=== PATIENT | female | born 1970 | race Caucasian/White ===

== ENCOUNTER → 2017-09-17 | Outpatient (CLI) | payer MEDICARE, OTHER ==
--- NOTE | 2017-09-18 13:44 | MM ---
Reason for exam: screening (asymptomatic). Last mammogram was performed 5 years and 1 month ago. Physical Findings: A clinical breast exam by your physician is recommended on an annual basis and results should be correlated with mammographic findings. MG 3D Screening Mammo W/Cad Bilateral CC, MLO, and XCCL view(s) were taken. Prior study comparison: August 13, 2012, bilateral digital screening mammo w/CAD. July 28, 2010, bilateral diagnostic digital mammog. The breast tissue is heterogeneously dense. This may lower the sensitivity of mammography. No suspicious abnormality. No significant changes when compared with prior studies. ASSESSMENT: Negative, BI-RAD 1 RECOMMENDATION: Routine screening mammogram of both breasts in 1 year.
== END | disposition home or self-care (01) ==
LOC: RADMAMWWP 08:27
PROVIDERS: ATTEND Internal Medicine
DX: Z12.31 Encounter for screening mammogram for malignant neoplasm of breast (principal)
CPT/HCPCS: 77063; G0202

== ENCOUNTER 2018-04-10 19:45 | Emergency (ER) | payer MEDICARE, OTHER ==
[2018-04-10] MEDS ORDERED: SODIUM CHLORIDE 0.9% 1,000 ML IV STA (20:53)
[2018-04-10] MEDS ORDERED: KETOROLAC 30 MG/ML 1 ML VIAL IVP STA (21:13)
[2018-04-10] MEDS ORDERED: ONDANSETRON 4 MG/2 ML VIAL IVP STA (21:13)
[2018-04-10 21:21] LABS: Basophils % (A) 0 %; Eosinophils # (A) 0.2 k/uL (0-0.7); Eosinophils % (A) 2 %; HCT 41.2 % (34.0-46.0); HGB 13.8 gm/dL (11.4-16.0); Lymphocytes # (A) 2.2 k/uL (1.0-4.8); Lymphocytes % (A) 14 %; MCH 27.7 pg (25.0-35.0); MCHC 33.5 g/dL (31.0-37.0); MCV 82.5 fL (80.0-100.0); Mean Platelet Volume 7.3; Monocytes % (A) 6 %; Neutrophils # (A) 12.5 k/uL (1.3-7.7); Neutrophils % (A) 78 %; Platelet Count 345 k/uL (150-450); RDW 13.8 % (11.5-15.5); WBC 16.1 k/uL (3.8-10.6)
[2018-04-10 21:25] LABS: Albumin 4.4 g/dL (3.5-5.0); Potassium 3.4 mmol/L (3.5-5.1); Total Bilirubin 0.4 mg/dL (0.2-1.3); Total Protein 7.2 g/dL (6.3-8.2)
[2018-04-10 21:28] LABS: Amorphous Sediment,Urine Rare /hpf; Appearance,Urine Cloudy (Clear); Bacteria,Urine Many /hpf; Bilirubin,Urine Negative (Negative); Blood,Urine Negative (Negative); Color,Urine Yellow; Glucose,Urine (UA) Negative (Negative); Ketones,Urine Trace (Negative); Leukocyte Esterase,Urine Negative (Negative); Mucus,Urine Rare /hpf; Nitrite,Urine Negative (Negative); Protein,Urine Trace (Negative); RBC,Urine 9 /hpf (0-5); Specific Gravity,Urine 1.012 (1.001-1.035); Squamous Epithelial Cell,Urine 7 /hpf (0-4); Urobilinogen,Urine <2.0 mg/dL (<2.0); WBC,Urine 9 /hpf (0-5)
--- NOTE | 2018-04-10 22:16 | CT ---
EXAMINATION TYPE: CT abdomen pelvis w con DATE OF EXAM: 04/10/2018 COMPARISON: 06/03/2014 HISTORY: Left side abdominal and back pain, nausea, vomiting and diarrhea. CT DLP: 1890 mGycm Automated exposure control for dose reduction was used. TECHNIQUE: Helical acquisition of images was performed from the lung bases through the pelvis. CONTRAST: Performed without Oral Contrast and with IV Contrast, patient injected with 100ml mL of Isovue 300. FINDINGS: Lung bases are clear. There is no pleural effusion. There is no pericardial effusion. Liver spleen gallbladder appear normal. Bile ducts are not dilated. Pancreas appears normal. There is no adrenal mass. There is left-sided hydronephrosis and hydroureter proximally. There is a 6 mm calculus at the left ureteropelvic junction. There is mild left-sided perinephric edema. There ar e several small calculi in the left kidney that measure up to 4 mm. The right kidney shows no evidenc e of a calculus. There is no hydronephrosis on the right side. Appendix appears normal. There is no i ntestinal wall thickening. There are no dilated loops. There is no ascites. Bladder distends smoothly . I see no bony destructive process. IMPRESSION: MULTIPLE LEFT RENAL CALCULI. OBSTRUCTING CALCULUS AT THE LEFT URETEROPELVIC JUNCTION.
--- NOTE | 2018-04-10 22:29 | ED ---
Abdominal Pain HPI - General Chief Complaint: Abdominal Pain Stated Complaint: left side pain/vomiting/diarrhea Time Seen by Provider: 04/10/18 20:52 Source: patient, RN notes reviewed, old records reviewed Mode of arrival: ambulatory Limitations: no limitations - History of Present Illness Initial Comments: Patient is a 48 year old female with CC of left sided abdominal and back pain for 2 days. Patient states she had pain of the right upper abdominal quadrant, but the pain has moved to the left upper and lower quadrants. Patient initially thought pain was due to constipation. She took a stool softner ad then developed diarrhea. She also reports vomiting yellow bile. She does have a history of kidney stones. - Related Data Home Medications Medication Instructions Recorded Confirmed Naloxegol Oxalate [Movantik] 25 mg PO DAILY 04/10/18 04/10/18 Naproxen Sodium [Aleve] 440 mg PO BID PRN 04/10/18 04/10/18 Pregabalin [Lyrica] 150 mg PO BID 04/10/18 04/10/18 SUMAtriptan SUCCINATE [Imitrex] 100 mg PO DAILY PRN 04/10/18 04/10/18 amLODIPine [Norvasc] 10 mg PO DAILY 04/10/18 04/10/18 Previous Rx's Medication Instructions Recorded Ciprofloxacin HCl 500 mg PO BID #14 tab 04/10/18 HYDROcodone/APAP 5-325MG [[place] 1 tab PO Q6HR PRN #10 tab 04/10/18 5-325] Ketorolac [Toradol] 10 mg PO TID #15 tab 04/10/18 Ondansetron HCl [Zofran] 4 mg PO TID #20 tablet 04/10/18 Tamsulosin HCl [Flomax] 0.4 mg PO DAILY #10 cap 04/10/18 Allergies Allergy/AdvReac Type Severity Reaction Status Date / Time No Known Allergies Allergy Verified 04/10/18 19:56 Review of Systems ROS Statement: Those systems with pertinent positive or pertinent negative responses have been documented in the HPI. ROS Other: All systems not noted in ROS Statement are negative. Past Medical History Past Medical History: Hypertension Additional Past Medical History / Comment(s): migraine, kidney stone. IBS. back pain. History of Any Multi-Drug Resistant Organisms: None Reported Past Surgical History: Section, Orthopedic Surgery Additional Past Surgical History / Comment(s): carpal tunnel. left total knee replacement. back surgery. Past Psychological History: No Psychological Hx Reported Smoking Status: Current every day smoker Past Alcohol Use History: None Reported Past Drug Use History: None Reported General Exam - General Exam Comments Initial Comments: 48 year old male, no distress. Limitations: no limitations General appearance: alert, in no apparent distress Head exam: Present: atraumatic, normocephalic, normal inspection Eye exam: Present: normal appearance, PERRL, EOMI. Absent: scleral icterus, conjunctival injection, periorbital swelling ENT exam: Present: normal exam, mucous membranes moist Neck exam: Present: normal inspection. Absent: tenderness, meningismus, lymphadenopathy Respiratory exam: Present: normal lung sounds bilaterally. Absent: respiratory distress, wheezes, rales, rhonchi, stridor Cardiovascular Exam: Present: regular rate, normal rhythm, normal heart sounds. Absent: systolic murmur, diastolic murmur, rubs, gallop, clicks GI/Abdominal exam: Present: soft, tenderness (Left upper quadrant and Left CVA tenderness), normal bowel sounds. Absent: distended, guarding, rebound, rigid Extremities exam: Present: normal inspection, full ROM, normal capillary refill. Absent: tenderness, pedal edema, joint swelling, calf tenderness Back exam: Present: normal inspection Neurological exam: Present: alert, oriented X3, CN II-XII intact Course Vital Signs 04/10/18 04/10/18 04/10/18 19:52 22:11 23:03 Temperature 97.9 F 98.3 F Pulse Rate 109 H 87 81 Respiratory 20 18 19 Rate Blood Pressure 155/100 145/85 161/103 O2 Sat by Pulse 98 98 97 Oximetry Medical Decision Making - Medical Decision Making Patient is a 48 year old female with CC of left sided abdominal and back pain for 2 days. Patient is afebrile. Patient has evidence of leukocytosis, which is likely in response to vomitng. UA shows some RBC and WBC. CT abdomen and pelvis completed and shows obstructing UPJ stone measuring 6mm on left kidney. Patient case discussed with Dr. Sexton .Patient has normal kidney function, patient informed of these results. Will start patient on cipro fore the few WBC in UA. Patient given referral for urology, and dc with flomax, toradol, and zofran. She does not want [place]. Patient informed of return parameters. - Lab Data Result diagrams: 04/10/18 20:55 04/10/18 20:55 Lab Results 04/10/18 04/10/18 04/10/18 Range/Units 20:55 20:55 20:55 WBC 16.1 H (3.8-10.6) k/uL RBC 5.00 (3.80-5.40) m/uL Hgb 13.8 (11.4-16.0) gm/dL Hct 41.2 (34.0-46.0) % MCV 82.5 (80.0-100.0) fL MCH 27.7 (25.0-35.0) pg MCHC 33.5 (31.0-37.0) g/dL RDW 13.8 (11.5-15.5) % Plt Count 345 (150-450) k/uL Neutrophils % 78 % Lymphocytes % 14 % Monocytes % 6 % Eosinophils % 2 % Basophils % 0 % Neutrophils # 12.5 H (1.3-7.7) k/uL Lymphocytes # 2.2 (1.0-4.8) k/uL Monocytes # 1.0 (0-1.0) k/uL Eosinophils # 0.2 (0-0.7) k/uL Basophils # 0.0 (0-0.2) k/uL Sodium 141 (137-145) mmol/L Potassium 3.4 L (3.5-5.1) mmol/L Chloride 101 (98-107) mmol/L Carbon Dioxide 25 (22-30) mmol/L Anion Gap 15 mmol/L BUN 13 (7-17) mg/dL Creatinine 1.00 (0.52-1.04) mg/dL Est GFR (CKD-EPI)AfAm 76 (>60 ml/min/1.73 sqM) Est GFR (CKD-EPI)NonAf 66 (>60 ml/min/1.73 sqM) Glucose 119 H (74-99) mg/dL Calcium 10.0 (8.4-10.2) mg/dL Total Bilirubin 0.4 (0.2-1.3) mg/dL AST 23 (14-36) U/L ALT 34 (9-52) U/L Alkaline Phosphatase 107 (38-126) U/L Total Protein 7.2 (6.3-8.2) g/dL Albumin 4.4 (3.5-5.0) g/dL Amylase 44 (30-110) U/L Lipase 48 (23-300) U/L Urine Color Yellow Urine Appearance Cloudy H (Clear) Urine pH 6.0 (5.0-8.0) Ur Specific [place] 1.012 (1.001-1.035) Urine Protein Trace H (Negative) Urine Glucose (UA) Negative (Negative) Urine Ketones Trace H (Negative) Urine Blood Negative (Negative) Urine Nitrite Negative (Negative) Urine Bilirubin Negative (Negative) Urine Urobilinogen <2.0 (<2.0) mg/dL Ur Leukocyte Esterase Negative (Negative) Urine RBC 9 H (0-5) /hpf Urine WBC 9 H (0-5) /hpf Ur Squamous Epith Cells 7 H (0-4) /hpf Amorphous Sediment Rare H (None) /hpf Urine Bacteria Many H (None) /hpf Urine Mucus Rare H (None) /hpf - Radiology Data Radiology results: report reviewed Left renal calculi. Obstructing Caliculus measuring 6mm of the left uteropelvic junction. It measures 6 mm. Disposition Clinical Impression: Left ureteral calculus Disposition: HOME SELF-CARE Condition: Good Instructions: Ureteral Stones (ED) Additional Instructions: Patient should follow-up with urology within the next 1-2 days. Take all the medications as prescribed. Return to the emergency department if any alarming signs or symptoms occur. Prescriptions: Ciprofloxacin HCl 500 mg PO BID #14 tab HYDROcodone/APAP 5-325MG [[place] 5-325] 1 tab PO Q6HR PRN #10 tab PRN Reason: Pain Ketorolac [Toradol] 10 mg PO TID #15 tab Ondansetron HCl [Zofran] 4 mg PO TID #20 tablet Tamsulosin HCl [Flomax] 0.4 mg PO DAILY #10 cap Is patient prescribed a controlled substance at d/c from ED?: Yes When asked, does pt state using other controlled substances?: No If prescribed controlled substance>3 days was MAPS reviewed?: Prescribed <3 Days If opioid is for acute pain is fill amount 7 days or less?: Yes If Rx opioid, was Start Talking consent form obtained?: Yes Referrals: Sean Cunha MD [Primary Care Provider] - 1-2 days Eric Queen MD [STAFF PHYSICIAN] - 1-2 days Time of Disposition: 22:28
[2018-04-10 23:07] VITALS: BP 161/103; PULSE 81; RESP 19; TEMP 98.3
== END 2018-04-10 23:02 | disposition home or self-care (01) ==
LOC: EC 19:45
DX: N20.2 Calculus of kidney with calculus of ureter (principal); I10 Essential (primary) hypertension; F17.200 Nicotine dependence, unspecified, uncomplicated; Z98.890 Other specified postprocedural states; Z96.652 Presence of left artificial knee joint; Z87.442 Personal history of urinary calculi; Z79.899 Other long term (current) drug therapy
CPT/HCPCS: 99285; 96374; 96375; 96361; 36415; 80053; 82150; 83690; 85025; 81001; 74177; J2405; J1885; Q9967

== ENCOUNTER → 2018-04-14 | Outpatient (CLI) | payer MEDICARE, OTHER ==
--- NOTE | 2018-04-14 12:05 | XR ---
EXAMINATION TYPE: XR KUB DATE OF EXAM: 04/14/2018 CLINICAL DATA: 48 year-old female left-sided flank pain for a few days, stones, [facility] COMPARISON: CT 04/10/2018 FINDINGS: Lung bases are clear. No evidence for free intraperitoneal air. Sided renal calculi are present, approximately 3 measuring up to 4 mm. There is a 9 mm irregular calcification at the left paramedian mid abdomen. Phleboliths in the left hemipelvis. Moderate stool burden. Nonobstructive bowel gas pattern. IMPRESSION: 1. Left-sided nephrolithiasis measuring up to 4 mm. 2. 9 mm irregular calcification left mid abdomen suspected to represent a proximal ureteral calculus. 3. Moderate stool burden.
== END | disposition home or self-care (01) ==
LOC: RADXRMAIN 11:40
PROVIDERS: ATTEND Urology
DX: N20.0 Calculus of kidney (principal)
CPT/HCPCS: 74018

== ENCOUNTER → 2018-05-01 | Outpatient (CLI) | payer MEDICARE, OTHER ==
--- NOTE | 2018-05-01 11:03 | XR ---
EXAMINATION TYPE: XR abdomen 1V DATE OF EXAM: 05/01/2018 CLINICAL DATA: 48 year-old female left ureteral stone, pain, [facility] COMPARISON: 04/14/2018 FINDINGS: Nonobstructive bowel gas pattern with very mild scattered stool. Air extends distally into the rectum . No dilated small bowel loops. A couple nonobstructive calculi redemonstrated on the left measuring 5 mm 3 mm. Stable 8 mm calcifica tion left paramedian mid abdomen corresponding to a mid left ureteral calculus. IMPRESSION: 1. Stable 8 mm calcification left paramedian mid abdomen, likely a mid left ureteral calculus. 2. Additional nonobstructive left-sided nephrolithiasis measuring up to 5 mm.
== END | disposition home or self-care (01) ==
LOC: RADXRMAIN 10:22
PROVIDERS: ATTEND Urology
DX: N20.0 Calculus of kidney (principal)
CPT/HCPCS: 74018

== ENCOUNTER 2018-05-07 09:51 | Day surgery (SDC) | payer MEDICARE, OTHER ==
[2018-05-05 11:52] VITALS: BMI 39.9
--- NOTE | 2018-05-05 21:33 | P.GSHP ---
History of Present Illness H&P Date: 05/05/18 48 yo female comes for a a left ureteroscopy and laser lithotripsy She has had a painful 6 m left ureteral stone for several weeks She is still having pain and wants it out She comes for this procedure - Constitutional Constitutional: Reports lethargy - Genitourinary (Female) Genitourinary: Reports as per HPI - Neurological Neurological: Reports headaches Past Medical History Past Medical History: Hypertension, Myocardial Infarction ([place]) Additional Past Medical History / Comment(s): migraine, kidney stone. IBS. back pain with DDD, Last Myocardial Infarction Date:: unknown History of Any Multi-Drug Resistant Organisms: None Reported Past Surgical History: Back Surgery, Section, Hysterectomy, Orthopedic Surgery Additional Past Surgical History / Comment(s): carpal tunnel. left total knee replacement. back surgery. Past Anesthesia/Blood Transfusion Reactions: Motion Sickness, Postoperative Nausea & Vomiting (PONV) Smoking Status: Current every day smoker - Past Family History Mother Family Medical History: No Reported History Medications and Allergies Home Medications Medication Instructions Recorded Confirmed Type Pregabalin [Lyrica] 150 mg PO HS 04/10/18 05/05/18 History SUMAtriptan SUCCINATE [Imitrex] 100 mg PO DAILY PRN 04/10/18 05/05/18 History amLODIPine [Norvasc] 10 mg PO HS 04/10/18 05/05/18 History Acetaminophen Tab [Tylenol Tab] 500 mg PO Q6H PRN 05/05/18 05/05/18 History Tamsulosin HCl [Flomax] 0.4 mg PO HS 05/05/18 05/05/18 History Allergies Allergy/AdvReac Type Severity Reaction Status Date / Time No Known Allergies Allergy Verified 05/05/18 11:40 Surgical - Exam - General well developed, well nourished, no distress - Eyes PERRL - ENT no hearing loss - Neck no masses - Respiratory normal expansion, normal respiratory effort - Abdomen Abdomen: soft, non tender - Integumentary no rash - Neurologic normal coordination, normal sensation - Musculoskeletal normal gait, normal posture - Psychiatric oriented to time, oriented to person, oriented to place, speech is normal, memory intact Assessment and Plan Assessment: imression: left ureteral stone Plan: Left ureteroscopy with laserlithotripsy wit possible stent
[~2018-05-07 09:51] MED LIST: DEXAMETHASONE SOD PHOSPHATE 10 MG/ML 1 ML VIAL IV ONE; LACTATED RINGERS 1,000 ML IV SCH; MIDAZOLAM 2 MG/2 ML VIAL IV PRN; ONDANSETRON 4 MG/2 ML VIAL IVP ONE; SCOPOLAMINE 1.5MG/72HR PATCH TRANSDERM ONE; ceFAZolin 1,000 MG in DEXTROSE/WATER 1 50ML.BAG IV ONE; fentaNYL (PF) 50 MCG/ML 2 ML AMP IV PRN
--- NOTE | 2018-05-07 11:35 | XR ---
EXAMINATION TYPE: XR KUB DATE OF EXAM: 05/07/2018 CLINICAL DATA: 48 year-old female prelithotripsy left-sided kidney stones, [facility] COMPARISON: 04/14/2018 FINDINGS: Nonobstructive bowel gas pattern. Lung bases clear. Supine imaging limited for assessment o f free air. On the lower radiograph, subtle 4 mm calcification at the left mid abdomen. Additional calculi seen p reviously are not as clearly seen. 8 mm calcification left paramedian mid abdomen is redemonstrated. Fluid within the left side of the pelvis. IMPRESSION: 1. Probable 8 mm left midureteral calculus again demonstrated 2. Additional left-sided nephrolithiasis not as well seen, one calculus measuring 4 mm is seen today.
[2018-05-07] MEDS ORDERED: LIDOCAINE 1% 20 ML VIAL (10MG/ML) FOR IV START INTRADERMA ONE (11:40)
[2018-05-07] MEDS ORDERED: SUCCINYLCHOLINE CHLORIDE 100 MG/5 ML SYR IV ONE (12:31)
[2018-05-07] MEDS ORDERED: LIDOCAINE 1% INJ 10MG/ML (20 ML MDV) ONE (12:31)
[2018-05-07] MEDS ORDERED: MIDAZOLAM 2 MG/2 ML VIAL ONE (12:31)
[2018-05-07] MEDS ORDERED: PROPOFOL 10 MG/ML 20 ML VIAL IV ONE (12:31)
[2018-05-07] MEDS ORDERED: fentaNYL (PF) 50 MCG/ML 2 ML AMP ONE (12:31)
--- NOTE | 2018-05-07 13:19 | P.OP ---
Date of Procedure: 05/07/18 Preoperative Diagnosis: Left ureteral calculus Postoperative Diagnosis: Same Procedure(s) Performed: Cystoscopy, left ureteroscopy, left laser lithotripsy, placement of 624 stent Anesthesia: CATRACHITAA Surgeon: Lorenzo Lozoya Estimated Blood Loss (ml): 0 Pathology: other (Stone) Condition: stable Disposition: PACU Indications for Procedure: The patient is 48 for the last several weeks she is tried to pass a 7 mm mid to proximal ureteral stone she has not been able to she comes for ureteroscopy Description of Procedure: Patient is brought to the operating suite. She is given a successful general endotracheal anesthesia. The stone is seen under fluoroscopy. A sterile prep and drape was administered. Cystoscopy Foroblique lens and 22-Russian sheath identifies normal urethra. The ureters normal bladder mucosa is unremarkable. I immediately pass a 7-Russian mini ureteroscope up into the ureter and I'm able to traverse although up to the stone. There is a fair amount amount of edema around the stone. With the 270 laser probe and 4 W of energy the stone was broken into tiny fragments and flushed out of the ureter. Due to the edema I will leave the stent. An 035 wires and passed through the ureteroscope into the renal pelvis. Over the wires and passed a 6 x 24 double-J stent that coils in the kidney and in the bladder The patient's awake and returned recovery room good condition. She'll be discharged home and found the office in 10 days for cystoscopy stent removal
[2018-05-07 13:41] VITALS: TEMP 97.4
[2018-05-07 13:45] VITALS: RESP 16
--- NOTE | 2018-05-07 13:51 | FL ---
EXAMINATION TYPE: FL guidance operating room DATE OF EXAM: 05/07/2018 FLUOROSCOPY Fluoroscopy time of 19 seconds was used during cystoscopy, left calculus intervention with stent inse rtion. 1 image/s document/s the procedure.
[2018-05-07] MEDS ORDERED: HYDROmorphone 0.5 MG/0.5 ML SYRINGE IVP ONE (14:13)
[2018-05-07 14:55] VITALS: BP 132/83; PULSE 86
== END 2018-05-07 15:09 | disposition home or self-care (01) ==
LOC: OR 09:51
PROVIDERS: ATTEND Urology
DX: N20.2 Calculus of kidney with calculus of ureter (principal); K21.9 Gastro-esophageal reflux disease without esophagitis; I10 Essential (primary) hypertension; I25.2 Old myocardial infarction; F17.210 Nicotine dependence, cigarettes, uncomplicated; Z79.899 Other long term (current) drug therapy
CPT/HCPCS: 84132; 82365; 74018; 52356; C2625; C1769; J2250; J1100; J2405; J2001; J3010; J0690; J0330; J2704; J1170

== ENCOUNTER → 2018-08-12 | Outpatient (CLI) | payer MEDICARE, OTHER ==
[2018-07-23 15:00] VITALS: BMI 38.7
[2018-08-12 12:18] VITALS: BP 123/76; PULSE 80; RESP 18; TEMP 98.3
--- NOTE | 2018-08-12 12:39 | P.PAINCN ---
History of Present Illness - Reason for Consult Consult date: 08/12/18 - History of Present Illness This is the initial visit for this 48 years old female with a chronic history of severe neck pain and headache and low back pain, symptoms started 15 years ago, increased with intensity over time, she had multiple pain intervention procedures procedures, including Botox injection, and that helped her headache, and almost a year ago she had radiofrequency ablation of the medial branch lumbar area, which helped her low back pain significantly, the patient moved to our area recently, and it will be hard for her to go to [facility] to have her injections done at [facility], currently she is having the severe pain in the low back area, with radiation to the posterior aspect of her buttock, she denies any fever or night sweats. She denies any motor or sensory deficit, and there is no change in the bowel movement or urination. Past Medical History Past Medical History: Hypertension, Myocardial Infarction ([place]) Additional Past Medical History / Comment(s): migraine, kidney stone. IBS. back pain with DDD, Last Myocardial Infarction Date:: unknown History of Any Multi-Drug Resistant Organisms: None Reported Past Surgical History: Back Surgery, Section, Hysterectomy, Joint Replacement, Orthopedic Surgery Additional Past Surgical History / Comment(s): carpal tunnel. left total knee replacement. back surgery. Past Anesthesia/Blood Transfusion Reactions: Motion Sickness, Postoperative Nausea & Vomiting (PONV) Smoking Status: Current every day smoker - Past Family History Mother Family Medical History: No Reported History Medications and Allergies Home Medications Medication Instructions Recorded Confirmed Type Pregabalin [Lyrica] 150 mg PO HS 04/10/18 08/12/18 History SUMAtriptan SUCCINATE [Imitrex] 100 mg PO DAILY PRN 04/10/18 08/12/18 History amLODIPine [Norvasc] 10 mg PO HS 04/10/18 08/12/18 History Acetaminophen Tab [Tylenol Tab] 500 mg PO Q6H PRN 05/05/18 08/12/18 History Levofloxacin [Levaquin] 500 mg pe PO DAILY 08/12/18 08/12/18 History Phentermine HCl [Adipex P] 15 mg PO DAILY 08/12/18 08/12/18 History Umeclidinium Brm/Vilanterol Tr 1 puff INHALATION DAILY 08/12/18 08/12/18 History [Anoro Ellipta 62.5-25 Mcg INH] predniSONE 20 mg PO DAILY 08/12/18 08/12/18 History Allergies Allergy/AdvReac Type Severity Reaction Status Date / Time No Known Allergies Allergy Verified 08/12/18 11:54 Physical Exam Vitals: Vital Signs Temp Pulse Resp BP Pulse Ox 08/12/18 12:17 98.3 F 80 18 123/76 96 Intake and Output 08/11/18 08/12/18 08/12/18 22:59 06:59 14:59 Other: Weight 102.058 kg Social history : smoker , NO ETOH , NO Illegal drugs use . Review of Systems : 1- Constitutional : no chills , no fever , no night sweats , 2- Ears : no ear discharge , no change in hearing 3-Nose, Mouth ,Throat ; no bleeding gums, no sore throat , no epistaxis , 4-Cardiovascular : Denies chest pain, , no orthopnea , no palpitation 5-Respiratory : Denies cough , no dyspnea , no hemoptysis 6-Gastrointestinal :, no change in bowel habits , no coffee- ground emesis . 7-Genitourinary : No hematuria , no discharge , no incontinence, 8-Musculoskeletal : No gait dysfunction , report low back pain , reports headache , 9- Neurological : no ataxia , no tremor , no sezure , 10-Psychatric , no suicidal ideation no hallucination 11- Endocrine : no cold intolerence , no polyuria , no polydypsia , 12-Hematologic : no easy bleeding , no easy brusing , 13-Allergic / immunology : no angioedema , no wheezing ,no allergic rhinitis 14-Integumentary : no brttle nails , no change hair / nails , no foot/leg ulcers . Physical Examinations : 1-Constitutional : Cooperative , not in acute distress . 2-HEENT : nech ; supple , no Lymphadenopathy , no Thyromegaly , :eyes , no icterus, no photophobia . ENT : , normal oropharynx , no Thrush 3- Respiratory : Chest clear to auscultations Bilaterally , no wheezing . 4- Cardiovascular : regular rate and rhythem , S1 , S2 , no S3 , no S4. 5- Gastrointestinal: abdomen soft no tenderness , no organomegally . 6- Genitourinary : Defferred . 7-Integumentary : No cellulitis , no ulcers , normal skin turgor , no cyanotic . 8- neurologic : Cranial nerve II to XII intact , no focal neurological deffecit 9-psychatric : alert , oriented X 3 , appropriate affect , intact judgment and insight . 10-Lymphatic : no Lymphadenopathy. 11- musculoskeltal: normal gait Cervical Spine motor stregnth in the deltoid and biceps, normal right side , normal Left side motor stregnth biceps and the wrist extensors normal right side ,normal left side . motor stregnth in the triceps muscle . normal Right side , normal Left side deep tendon reflexes normal at the biceps , normal at Brachioradialis , normal at triceps. positive cervical facet loading test . Lumber spine moter stegnth lower extremities ,thigh and legs 5/5 Right side , 5/5 Left side deep tendon reflexes : normal Knee Jerk , normal ankle Jerk positive lumber facet Loading Test Range of motion of the lumbar spine Flexion 60 degrees, extension 10 degrees strait leg raising test , positive at 60 degree left; negative on the right side Fabere test negative bilaterally tenderness over the Sacroiliac joint on the R and L sides Results Comments: Patient had MRI done at different institutions she will bring this report Assessment and Plan Plan: Assessment and plan=1-lumbar spondylosis with lumbar facet arthropathy without myelopathy. Patient will be good candidate to have diagnostic medial branch block lumbar area at L3 to S1 Lifts positive we will proceed with radiofrequency ablation of the medial branch lumbar area. 2-cervical spondylosis, cervicogenic headache in the future we could order MRI of the cervical spine,TO identify etiology Time with Patient: Greater than 30 PQRS Measure Charge Sheet Measure #130: Documentation of Current Meds in Medical Chart: Patient's medications documented in chart Measure #226: Tobacco Use: Screen & Cessation Intervention: Pt screened for tobacco use AND intervention given Measure #111: Pneumonia Vaccination: Pneumococcal vaccine NOT administered or previously given Measure #47: Advance Care Plan: Advance care planning discussed & documented, pt chose/unable to give Measure #412: Opioid Treatment Agreement: No documentation of signed opioid treatment agreement Measure #408: Opioid Therapy Follow-up Evaluation: Patient had NO f/u eval minimum every 3 months during opioid therapy Measure #317: Preventitive Care & Scrn High Bld Press & F/U: Normal blood pressure, f/u not required Measure #128: Body Mass Index (BMI) Screening & Follow-up: BMI documented ABOVE normal parameters - f/u documented Measure #131: Pain Assessment & Follow-up: Pain positive & plan documented, Follow-up scheduled Measure #431: Unhealthy Alcohol Use Preventative Care & Scrn: Patient not identified as an unhealthy alcohol user PQRS Narrative: Smoking Status Current every day smoker Do You Want the Pneumonia No Vaccine AT THIS TIME? Blood Pressure 123/76 Pain Intensity [Lower Back] 5 Pain Intensity [Neck] 3 Hx Alcohol Use (MH) No Home Medications: Ambulatory Orders Pregabalin [Lyrica] 150 mg PO HS 04/10/18 SUMAtriptan SUCCINATE [Imitrex] 100 mg PO DAILY PRN 04/10/18 amLODIPine [Norvasc] 10 mg PO HS 04/10/18 Acetaminophen Tab [Tylenol Tab] 500 mg PO Q6H PRN 05/05/18 Levofloxacin [Levaquin] 500 mg pe PO DAILY 08/12/18 Phentermine HCl [Adipex P] 15 mg PO DAILY 08/12/18 Umeclidinium Brm/Vilanterol Tr [Anoro Ellipta 62.5-25 Mcg INH] 1 puff INHALATION DAILY 08/12/18 predniSONE 20 mg PO DAILY 08/12/18
== END | disposition home or self-care (01) ==
LOC: PNWHC3 11:49
PROVIDERS: ATTEND Specialist
DX: G89.29 Other chronic pain (principal); M54.2 Cervicalgia; R51 Headache; M54.5 Low back pain; M47.812 Spondylosis without myelopathy or radiculopathy, cervical region; M47.816 Spondylosis without myelopathy or radiculopathy, lumbar region; M46.86 Other specified inflammatory spondylopathies, lumbar region; F17.200 Nicotine dependence, unspecified, uncomplicated; I10 Essential (primary) hypertension; I25.2 Old myocardial infarction; Z79.52 Long term (current) use of systemic steroids; Z79.2 Long term (current) use of antibiotics; Z90.710 Acquired absence of both cervix and uterus; Z98.890 Other specified postprocedural states; Z79.899 Other long term (current) drug therapy; Z71.6 Tobacco abuse counseling
CPT/HCPCS: 99211

== ENCOUNTER → 2018-09-15 | Day surgery (SDC) | payer MEDICARE, OTHER ==
[2018-09-10 15:44] VITALS: BMI 41.8
[~2018-09-15] MED LIST changes: -DEXAMETHASONE SOD PHOSPHATE 10 MG/ML 1 ML VIAL IV ONE; -LACTATED RINGERS 1,000 ML IV SCH; -MIDAZOLAM 2 MG/2 ML VIAL IV PRN; -ONDANSETRON 4 MG/2 ML VIAL IVP ONE; -SCOPOLAMINE 1.5MG/72HR PATCH TRANSDERM ONE; +SODIUM CHLORIDE 0.9% 500 ML 500 ML IV ONE; -ceFAZolin 1,000 MG in DEXTROSE/WATER 1 50ML.BAG IV ONE; -fentaNYL (PF) 50 MCG/ML 2 ML AMP IV PRN
[2018-09-15 07:38] VITALS: TEMP 97.5
--- NOTE | 2018-09-15 08:34 | P.PCN ---
Date of Procedure: 09/15/18 Anesthesia: MAC (Conscious sedation) Surgeon: Magdi Daugherty Description of Procedure: DESCRIPTION OF PROCEDURE(S): PROCEDURE: Bilateral lumbar medial branch block L3-L4, L4-L5, L5-S1 with fluoroscopy PREOPERATIVE DIAGNOSIS : 1- Lumbar spondylosis with Facet Arthropathy without myelopathy . 2- Lumber degenerative disc disease POSTOPERATIVE DIAGNOSIS: 1- Lumbar spondylosis with Facet Arthropathy without myelopathy . 2- Lumber degenerative disc disease PROCEDURE: Diagnostic bilateral L3 -4 , L4 -5 , and L5-S1 medial branch block under fluoroscopy ANESTHESIA: IV sedation with Versed 2 mg COMPLICATION: None. IV FLUIDS: 100 mL of normal saline. PROCEDURE INDICATION: Chronic low back pain secondary to Facet arthropathy unresponsive to conservative treatment. PROCEDURE DESCRIPTION: the patient was seen and identified in the preop holding area , risks and benefits and possible complications of the procedure and alternative were discussed with the patient, and the patient agreed to proceed with the procedure and signed the consent IV was started and vital signs monitored during the procedure and fluoroscopy was used to maximize the benefit and accuracy of the needle placement, and sedation was given to decrease patient anxiety, patient was taken to the procedure room and placed in prone position vital signs monitored in the back prepped with chlorhexidine X3 then under strict sterile technique using a right oblique fluoroscopy ,the junction of the transverse process and the superior articulating process of the right L3- 4 , L4- 5, and L5-S1 vertebra which corresponding to the fluoroscopy image of the eye of the Travon dog on the block side for the medial branches and subsequently , a 25-gauge Quincke-type needle was used and each time placed at the junction of the base of the transverse process and the superior articular process at the appropriate level L3, L4, L5, S1 pedicle. The needle was advanced until the periosteum contacted , needle placement confirmed with AP oblique and lateral view and after appropriate needle placement confirmed, and after negative aspiration for heme and CSF and there was no paresthesia 1 mL of Marcaine 0.5% after negative aspiration the needle subsequently removed and the same procedure repeated for the left side at left side at L3-4, L4- 5 and L5-S1 levels. At the end of the procedure and the needles removed and a bandage applied after the skin was cleaned the cleaning solution patient taken to recovery room in stable condition and monitors in the recovery room for 20-30 minutes and discharged home in stable condition after discharge criteria met and patient will return for repeat procedure in 2-4 weeks.
[2018-09-15 08:41] VITALS: BP 132/69; RESP 18
[2018-09-15 09:07] VITALS: PULSE 85
--- NOTE | 2018-09-15 12:15 | FL ---
EXAMINATION TYPE: FL guided pain mgmt statistic DATE OF EXAM: 09/15/2018 FLUOROSCOPY Fluoroscopy time of 7 seconds was used during lumbar facet steroid injection. 8 image/s document/s t he procedure.
== END | disposition home or self-care (01) ==
LOC: ORPAIN 07:15
PROVIDERS: ATTEND Hospitalist
DX: M47.816 Spondylosis without myelopathy or radiculopathy, lumbar region (principal); G89.29 Other chronic pain
CPT/HCPCS: 64493; 64494; 64495; J2250

== ENCOUNTER 2018-10-29 09:23 | Day surgery (SDC) | payer MEDICARE, OTHER ==
[2018-10-22 14:52] VITALS: BMI 40.9
[~2018-10-29 09:23] MED LIST changes: -SODIUM CHLORIDE 0.9% 500 ML 500 ML IV ONE; +SODIUM CHLORIDE 0.9% 500 ML 500 ML IV SCH
[2018-10-29 11:00] VITALS: RESP 16; TEMP 98.4
[2018-10-29] MEDS ORDERED: LACTATED RINGERS 1,000 ML IV ONE (11:01)
[2018-10-29] MEDS ORDERED: LIDOCAINE 1% 20 ML VIAL (10MG/ML) FOR IV START INTRADERMA ONE (11:01)
--- NOTE | 2018-10-29 11:38 | P.PCN ---
Date of Procedure: 10/29/18 Surgeon: Remedios Soto Pathology: none sent Condition: stable Disposition: PACU Description of Procedure: PROCEDURE: Bilateral lumbar medial branch block L3-L4, L4-L5, L5-S1 with fluoroscopy PREOPERATIVE DIAGNOSIS : 1- Lumbar spondylosis with Facet Arthropathy without myelopathy . 2- Lumber degenerative disc disease POSTOPERATIVE DIAGNOSIS: 1- Lumbar spondylosis with Facet Arthropathy without myelopathy . 2- Lumber degenerative disc disease PROCEDURE: Diagnostic bilateral L3 -4 , L4 -5 , and L5-S1 medial branch block under fluoroscopy ANESTHESIA: IV moderate conscious sedation with Versed 2 mg , and local anesthesia with lidocaine 1% COMPLICATION: None. IV FLUIDS: 100 mL of normal saline. PROCEDURE INDICATION: Chronic low back pain secondary to Facet arthropathy unresponsive to conservative treatment. PROCEDURE DESCRIPTION: the patient was seen and identified in the preop holding area , risks and benefits and possible complications of the procedure and alternative were discussed with the patient, and the patient agreed to proceed with the procedure and signed the consent IV was started and vital signs monitored during the procedure and fluoroscopy was used to maximize the benefit and accuracy of the needle placement, and sedation was given to decrease patient anxiety, patient was taken to the procedure room and placed in prone position vital signs monitored in the back prepped with chlorhexidine X3 then under strict sterile technique using a right oblique fluoroscopy ,the junction of the transverse process and the superior articulating process of the right L3- 4 , L4- 5, and L5-S1 vertebra which corresponding to the fluoroscopy image of the eye of the Travon dog on the block side for the medial branches and subsequently , a 22-gauge Quincke-type needle was used and each time placed at the junction of the base of the transverse process and the superior articular process at the appropriate level L3, L4, L5, S1 pedicle. The needle was advanced until the periosteum contacted , needle placement confirmed with AP oblique and lateral view and after appropriate needle placement confirmed, and after negative aspiration for heme and CSF and there was no paresthesia 1 mL of Marcaine 0.5% after negative aspiration the needle subsequently removed and the same procedure repeated for the left side at left side at L3-4, L4- 5 and L5-S1 levels. At the end of the procedure and the needles removed and a bandage applied after the skin was cleaned the cleaning solution patient taken to recovery room in stable condition and monitors in the recovery room for 20-30 minutes and discharged home in stable condition after discharge criteria met and patient will return for repeat procedure in 2-4 weeks.
[2018-10-29] MEDS ORDERED: IV FLUID CONTINUATION 1,000 ML IV ONE (11:45)
[2018-10-29 11:57] VITALS: BP 122/80; PULSE 83
--- NOTE | 2018-10-29 13:08 | FL ---
EXAMINATION TYPE: FL guided pain mgmt statistic DATE OF EXAM: 10/29/2018 FLUOROSCOPY Fluoroscopy time of 8 seconds was used during lumbar facet injection. 1 image/s document/s the ernesto thurman.
== END 2018-10-29 12:15 | disposition home or self-care (01) ==
LOC: ORPAIN 09:23
PROVIDERS: ATTEND Anesthesiology
DX: G89.29 Other chronic pain (principal); M47.816 Spondylosis without myelopathy or radiculopathy, lumbar region; I10 Essential (primary) hypertension; E66.9 Obesity, unspecified; Z68.41 Body mass index [BMI] 40.0-44.9, adult
CPT/HCPCS: 64493; 64494; 64495; J2250; J3301; 99152

== ENCOUNTER → 2018-11-26 | Outpatient (CLI) | payer MEDICARE, OTHER ==
[2018-11-26 12:05] VITALS: BP 147/82; PULSE 76; RESP 18
--- NOTE | 2018-11-26 13:05 | P.PN ---
Subjective Progress Note Date: 11/26/18 This is the initial visit for this 48 years old female with a chronic history of severe neck pain and headache and low back pain, she was diagnosed with lumbar spondylosis with lumbar facet arthropathy, recently with done diagnostic medial branch block lumbar area at L3 to S1 x2 , patient reported that her pain level before the first diagnostic block was 7/10 dropped to 2/10 , and the same happened after the second diagnostic block, the pain relief was for short-term, currently she is having the severe pain in the low back area, she denies any fever or night sweats. She denies any motor or sensory deficit, and there is no change in the bowel movement or urination. She continued to use Lyrica 150 mg daily at bedtime and Tylenol and she is getting prescription refills from her primary care, she denies any side effects of the medication Physical Examinations : 1-Constitutional : Cooperative , not in acute distress . 2-HEENT : nech ; supple , no Lymphadenopathy , no Thyromegaly , :eyes , no icterus, no photophobia . ENT : , normal oropharynx , no Thrush 3- Respiratory : Chest clear to auscultations Bilaterally , no wheezing . 4- Cardiovascular : regular rate and rhythem , S1 , S2 , no S3 , no S4. 5- Gastrointestinal: abdomen soft no tenderness , no organomegally . 6- Genitourinary : Defferred . 7-Integumentary : No cellulitis , no ulcers , normal skin turgor , no cyanotic . 8- neurologic : Cranial nerve II to XII intact , no focal neurological deffecit 9-psychatric : alert , oriented X 3 , appropriate affect , intact judgment and insight . 10-Lymphatic : no Lymphadenopathy. 11- musculoskeltal: normal gait Cervical Spine motor stregnth in the deltoid and biceps, normal right side , normal Left side motor stregnth biceps and the wrist extensors normal right side ,normal left side . motor stregnth in the triceps muscle . normal Right side , normal Left side deep tendon reflexes normal at the biceps , normal at Brachioradialis , normal at triceps. positive cervical facet loading test . Lumber spine moter stegnth lower extremities ,thigh and legs 5/5 Right side , 5/5 Left side deep tendon reflexes : normal Knee Jerk , normal ankle Jerk positive lumber facet Loading Test Range of motion of the lumbar spine Flexion 60 degrees, extension 10 degrees strait leg raising test , positive at 60 degree left; negative on the right side Fabere test negative bilaterally tenderness over the Sacroiliac joint on the R and L sides Assessment and plan=1-lumbar spondylosis with lumbar facet arthropathy without myelopathy. Patient had positive results after the diagnostic medial branch block lumbar area is 3 to S1 The pain dropped from 7/10 to 2/10 after the diagnostic block patient will be good candidate to have, radiofrequency ablation of the medial branch lumbar area. L3-4 /L4-5 /L5-S1 We will start with the left side later on went to the right side 2-cervical spondylosis, cervicogenic headache in the future we could order MRI of the cervical spine,TO identify etiolog PQRS Measure Charge Sheet Measure #130: Documentation of Current Meds in Medical Chart: Patient's medications documented in chart Measure #226: Tobacco Use: Screen & Cessation Intervention: Pt screened for tobacco use AND intervention given Measure #111: Pneumonia Vaccination: Pneumococcal vaccine NOT administered or previously given Measure #47: Advance Care Plan: Advance care planning discussed & documented, pt chose/unable to give Measure #412: Opioid Treatment Agreement: No documentation of signed opioid treatment agreement Measure #408: Opioid Therapy Follow-up Evaluation: Patient had NO f/u eval minimum every 3 months during opioid therapy Measure #317: Preventitive Care & Scrn High Bld Press & F/U: Blood pressure 147/ 82/elevated , and she will follow up with the primary care Measure #128: Body Mass Index (BMI) Screening & Follow-up: BMI documented ABOVE normal parameters - f/u documented Measure #131: Pain Assessment & Follow-up: Pain positive & plan documented, Follow-up scheduled Measure #431: Unhealthy Alcohol Use Preventative Care & Scrn: Patient not identified as an unhealthy alcohol user PQRS Narrative: Objective - Vital Signs Vital signs: Vital Signs Temp Pulse 76 11/26/18 11:56 Resp 18 11/26/18 11:56 BP 147/82 11/26/18 11:56 Pulse Ox 97 11/26/18 11:56 Intake & Output 11/25/18 11/26/18 11/26/18 18:59 06:59 18:59 Weight 92.079 kg
== END ==
LOC: PNWHC3 11:24
PROVIDERS: ATTEND Specialist
DX: G89.29 Other chronic pain (principal); M47.816 Spondylosis without myelopathy or radiculopathy, lumbar region; M46.96 Unspecified inflammatory spondylopathy, lumbar region; M47.812 Spondylosis without myelopathy or radiculopathy, cervical region; R51 Headache
CPT/HCPCS: 99211

== ENCOUNTER → 2018-12-22 | Day surgery (SDC) | payer MEDICARE, OTHER ==
[2018-12-17 16:59] VITALS: BMI 35.4
[~2018-12-22] MED LIST changes: +IV FLUID CONTINUATION 1,000 ML IV ONE; +LACTATED RINGERS 1,000 ML IV ONE; +LIDOCAINE 1% 20 ML VIAL (10MG/ML) FOR IV START INTRADERMA ONE
[2018-12-22 09:37] VITALS: RESP 16
--- NOTE | 2018-12-22 10:58 | P.PCN ---
Date of Procedure: 12/22/18 Surgeon: Remedios Soto Pathology: none sent Condition: stable Disposition: PACU Description of Procedure: PREOPERATIVE DIAGNOSIS: Lumbar spondylosis without myelopathy, morbid obesity POSTOPERATIVE DIAGNOSIS: Lumbar spondylosis without myelopathy,morbid obesity PROCEDURES : Left Radiofrequency thermocoagulation L3-L4, L4-L5, and L5-S1 medial branch with fluoroscopic guidance ANESTHESIA: IV moderate conscious sedation with versed and fentanyl and local infiltration with lidocaine 1% 5 ml EBL: Minimal PROCEDURE INDICATION: The patient with low back pain secondary to lumbar facet arthropathy who had more than 50% relief of her pain with previous diagnostic lumbar medial branch block with bupivacaine. PROCEDURE DESCRIPTION / TECHNIQUE: The patient was seen and identified in the preoperative area. Risks, benefits, complications, including but not limited to risk of infection ,bleeding , allergic reactions to the medications and no complete pain relief , and alternatives were discussed with the patient, the patient agreed to proceed with the procedure and signed the consent. IV was started. Vital signs remained stable throughout the procedure. Patient was taken to the OR and time out was completed. The patient was placed in the prone position on the procedure table. The lumber area was prepped and draped in the usual sterile fashion. . Vital signs were closely monitored during the procedure .IV sedation was used during the procedure to decrease patients anxiety. The target points were identified as follows: For the L5-S1 level which corresponds to the dorsal ramus of L5 the target point was at the superior medial aspect of the sacral ala on the left side of the spine on the AP view of fluoroscopy and for the L2, L3, and L4 medial branches the target points were at the connection between the transverse process and the superior articular process of L3, L4, and L5 vertebra respectively on the left oblique view of fluoroscopy. skin was marked, and localized with 1% lidocaineat these points. Subsequently, an 18 -ux radiofrequency needles with a 10-mm curved active tips were advanced guided by fluoroscopy to each of the target points mentioned above in a superior medial direction to get the active tips as parallel as possible to the medial branches tracks. AP, oblique, and lateral views of fluoroscopy were used to verify needle tips position. Each level then underwent motor testing at 2.5 Hz and 0 to 3 volt with local stimulation, but no radicular symptoms down the legs. Then I injected 1 mL of lidocaine 1% in each needle. Thereafter radiofrequency thermocoagulation was started at 80 degrees celsius for 90 seconds Then I injected 1 ml at each level of a mixture of PF Marcaine 0.5%(3 mls) with 40 mg of Kenalog At the end of the procedure, the skin was cleansed and bandages were applied. COMPLICATIONS: No acute complications. DISPOSITION / PLANS: The patient was placed in a supine position and transferred to the recovery area in a stable condition for observation and was discharged from the recovery room after meeting discharge criteria. Home discharge instructions given to the patient by the staff. The patient was reexamined prior to discharge. The patient will schedule a follow up in the clinic in 2-4 weeks.
--- NOTE | 2018-12-22 11:12 | FL ---
Fluoroscopy INDICATION: Pain FINDINGS: Fluoroscopy time: 18 seconds. Images obtained: 3. IMPRESSIONS: 1. Documentation of fluoroscopy.
[2018-12-22 11:17] VITALS: BP 109/65; PULSE 75
== END ==
LOC: ORPAIN 09:00
PROVIDERS: ATTEND Anesthesiology
DX: M47.816 Spondylosis without myelopathy or radiculopathy, lumbar region (principal); E66.01 Morbid (severe) obesity due to excess calories; Z68.35 Body mass index [BMI] 35.0-35.9, adult; M47.812 Spondylosis without myelopathy or radiculopathy, cervical region; Z90.710 Acquired absence of both cervix and uterus
CPT/HCPCS: 64635; 64636; J2250; J3301; J2001; J3010; 99152

== ENCOUNTER 2019-01-05 07:26 | Day surgery (SDC) | payer MEDICARE, OTHER ==
[2018-12-30 12:17] VITALS: BMI 35.4
[~2019-01-05 07:26] MED LIST changes: -IV FLUID CONTINUATION 1,000 ML IV ONE; -LACTATED RINGERS 1,000 ML IV ONE; -LIDOCAINE 1% 20 ML VIAL (10MG/ML) FOR IV START INTRADERMA ONE
[2019-01-05] MEDS ORDERED: LACTATED RINGERS 1,000 ML IV ONE (07:45)
[2019-01-05 07:47] VITALS: RESP 16; TEMP 98.5
--- NOTE | 2019-01-05 08:47 | P.PCN ---
Date of Procedure: 01/05/19 Surgeon: Remedios Soto Pathology: none sent Condition: stable Disposition: PACU Description of Procedure: PREOPERATIVE DIAGNOSIS: Lumbar spondylosis without myelopathy, morbid obesity POSTOPERATIVE DIAGNOSIS: Lumbar spondylosis without myelopathy,morbid obesity PROCEDURES : Right Radiofrequency thermocoagulation L3-L4, L4-L5, and L5-S1 medial branch with fluoroscopic guidance ANESTHESIA: IV moderate conscious sedation with versed and fentanyl and local infiltration with lidocaine 1% 5 ml EBL: Minimal PROCEDURE INDICATION: The patient with low back pain secondary to lumbar facet arthropathy who had more than 50% relief of her pain with previous diagnostic lumbar medial branch block with bupivacaine. PROCEDURE DESCRIPTION / TECHNIQUE: The patient was seen and identified in the preoperative area. Risks, benefits, complications, including but not limited to risk of infection ,bleeding , allergic reactions to the medications and no complete pain relief , and alternatives were discussed with the patient, the patient agreed to proceed with the procedure and signed the consent. IV was started. Vital signs remained stable throughout the procedure. Patient was taken to the OR and time out was completed. The patient was placed in the prone position on the procedure table. The lumber area was prepped and draped in the usual sterile fashion. . Vital signs were closely monitored during the procedure .IV sedation was used during the procedure to decrease patients anxiety. The target points were identified as follows: For the L5-S1 level which corresponds to the dorsal ramus of L5 the target point was at the superior medial aspect of the sacral ala on the right side of the spine on the AP view of fluoroscopy and for the L3, and L4 medial branches the target points were at the connection between the transverse process and the superior articular process of L4, and L5 vertebra respectively on the left oblique view of fluoroscopy. skin was marked, and localized with 1% lidocaineat these points. Subsequently, an 18 -pf radiofrequency needles with a 10-mm curved active tips were advanced guided by fluoroscopy to each of the target points mentioned above in a superior medial direction to get the active tips as parallel as possible to the medial branches tracks. AP, oblique, and lateral views of fluoroscopy were used to verify needle tips position. Each level then underwent motor testing at 2.5 Hz and 0 to 3 volt with local stimulation, but no radicular symptoms down the legs. Then I injected 1 mL of lidocaine 1% in each needle. Thereafter radiofrequency thermocoagulation was started at 80 degrees celsius for 90 seconds Then I injected 1 ml at each level of a mixture of PF Marcaine 0.5%(3 mls) with 40 mg of Kenalog At the end of the procedure, the skin was cleansed and bandages were applied. COMPLICATIONS: No acute complications. DISPOSITION / PLANS: The patient was placed in a supine position and transferred to the recovery area in a stable condition for observation and was discharged from the recovery room after meeting discharge criteria. Home discharge instructions given to the patient by the staff. The patient was reexamined prior to discharge. The patient will schedule a follow up in the clinic in 2-4 weeks.
[2019-01-05] MEDS ORDERED: IV FLUID CONTINUATION 1,000 ML IV ONE (08:56)
[2019-01-05 09:12] VITALS: BP 107/71; PULSE 75
--- NOTE | 2019-01-05 09:32 | FL ---
EXAMINATION TYPE: FL guided pain mgmt statistic DATE OF EXAM: 01/05/2019 CLINICAL HISTORY: Low back pain. TECHNIQUE: Fluoroscopy. COMPARISON: None. FINDINGS: Fluoroscopic guidance was provided during pain relief procedure performed by Dr. Soto . A total of 9 seconds of fluoroscopic time was utilized during the procedure and 3 spot images are a cquired. Images acquired shows needle localization at several levels in the lower lumbar spine. IMPRESSION: As Above.
== END 2019-01-05 09:25 | disposition home or self-care (01) ==
LOC: ORPAIN 07:26
PROVIDERS: ATTEND Anesthesiology
DX: M47.816 Spondylosis without myelopathy or radiculopathy, lumbar region (principal); E66.01 Morbid (severe) obesity due to excess calories; I10 Essential (primary) hypertension; Z68.35 Body mass index [BMI] 35.0-35.9, adult
CPT/HCPCS: 64635; 64636 ×2; J2250; J3301; J3010; 99152

== ENCOUNTER → 2019-01-26 | Outpatient (CLI) | payer MEDICARE, OTHER ==
[2019-01-26 11:25] VITALS: BP 150/76; PULSE 78; RESP 16
--- NOTE | 2019-01-26 11:39 | P.PAINPG ---
Subjective Progress Note Date: 01/26/19 Chavo is a pleasant 49-year-old female who presents today for follow-up. She is status post radiofrequency ablation of bilateral lumbar medial branch blocks. She reports that procedures helped her back pain significantly she continues to complain of some back pain at times but is much better after the procedure. She reports that she feels she had better relief from the procedure was done years ago at a different facility. She also complains of numbness and tingling in her left foot all the way down to her lateral toes. She reports that this is an inconvenience but is now very pain focused time. She does not use any pain medications. She uses [id number] Motrin as needed. She also Uses THC. Objective - Vital Signs Vital signs: Vital Signs Temp Pulse 78 01/26/19 11:16 Resp 16 01/26/19 11:16 BP 150/76 01/26/19 11:16 Pulse Ox 99 01/26/19 11:16 Intake & Output 01/25/19 01/26/19 01/26/19 18:59 06:59 18:59 Weight 90.718 kg - Exam General: Awake and alert oriented 3 no distress Respiratory exam: No audible wheezing no accessory muscle usage Cardiovascular exam: regular rate, palpable bilateral pulses, no lower extremity edema Abdominal exam: No distention nontender to palpation Cervical spine: Normal alignment, Spurling's negative, facet loading negative Lumbar spine: Loss of lumbar lordosis, normal alignment, tender to palpation over bilateral paraspinal muscles, facet loading is negative bilaterally. Straight leg raise is negative. Sacroiliac joints: Nontender to palpation, CATERINA is negative, Gaenselon negative Neuro exam: Normal sensation in bilateral upper extremities, deep tendon reflexes are 2+ bilateral upper extremities. Normal sensation in bilateral lower extremities. Deep tendon reflexes are 2+ in lower extremities Psych exam: Cooperative, appropriate mood Assessment and Plan Assessment: #1 lumbar spondylosis without myelopathy #2 lumbar radiculopathy Plan: After discussion with the patient regarding the procedure and her expectations. I feel that she should participate in physical therapy now after having the ablation. I advised that she will be sore regardless and will continue to have some pain but her expectations need to be refined. Advise her to continue taking [id number] medication only as needed. I will give her a prescription today for physical therapy and schedule her back to see us in 3 months. No medications were given on today's visit PQRS Measure Charge Sheet Measure #130: Documentation of Current Meds in Medical Chart: Patient's medications documented in chart Measure #226: Tobacco Use: Screen & Cessation Intervention: Pt not a tobacco user Measure #111: Pneumonia Vaccination: Pneumococcal vaccine NOT administered or previously given Measure #47: Advance Care Plan: Advance care planning discussed & documented, pt chose/unable to give Measure #412: Opioid Treatment Agreement: No documentation of signed opioid treatment agreement Measure #131: Pain Assessment & Follow-up: Pain positive & plan documented, Follow-up scheduled Measure #431: Unhealthy Alcohol Use Preventative Care & Scrn: Patient not identified as an unhealthy alcohol user PQRS Narrative: Smoking Status Current every day smoker Do You Want the Pneumonia No Vaccine AT THIS TIME? Blood Pressure 150/76 Pain Intensity [Bilateral 5 Lower Back] Scale Used Numeric (1 - 10) Hx Alcohol Use (MH) No Home Medications: Ambulatory Orders Pregabalin [Lyrica] 150 mg PO HS 04/10/18 SUMAtriptan SUCCINATE [Imitrex] 100 mg PO DAILY PRN 04/10/18 amLODIPine [Norvasc] 10 mg PO HS 04/10/18 Acetaminophen Tab [Tylenol Tab] 500 mg PO Q6H PRN 05/05/18 Umeclidinium Brm/Vilanterol Tr [Anoro Ellipta 62.5-25 Mcg INH] 1 puff INHALATION DAILY 08/12/18 Spironolactone [Aldactone] 100 mg PO DAILY 09/10/18 Ergocalciferol (Vitamin D2) [Vitamin D2] 50,000 unit PO MO 10/22/18 Multivitamins, Thera [Multivitamin (formulary)] 1 tab PO DAILY 10/22/18 Cholecalciferol [Vitamin D3] 400 unit PO DAILY 12/17/18 Promethazine 6.25MG/5Ml [Phenergan Syrup] 5 - 10 ml PO QID PRN 12/17/18 Controlled Substance Measures - Controlled Substance Measures Is patient prescribed a controlled substance at discharge?: No
== END ==
LOC: PNWHC3 11:01
PROVIDERS: ATTEND Hospitalist
DX: M47.26 Other spondylosis with radiculopathy, lumbar region (principal); F17.200 Nicotine dependence, unspecified, uncomplicated; Z79.899 Other long term (current) drug therapy
CPT/HCPCS: 99211

== ENCOUNTER 2019-02-10 08:45 | Day surgery (SDC) | payer MEDICARE, OTHER ==
[2019-02-06 08:57] VITALS: BMI 34.5
[~2019-02-10 08:45] MED LIST changes: +DEXAMETHASONE SOD PHOSPHATE 10 MG/ML 1 ML VIAL IV ONE; +LACTATED RINGERS 1,000 ML IV SCH; +ONDANSETRON 4 MG/2 ML VIAL IVP ONE; -SODIUM CHLORIDE 0.9% 500 ML 500 ML IV SCH
[2019-02-10 09:09] VITALS: RESP 16; TEMP 98.5
[2019-02-10] MEDS ORDERED: LACTATED RINGERS 1,000 ML IV ONE (09:15)
[2019-02-10] MEDS ORDERED: LIDOCAINE 1% 20 ML VIAL (10MG/ML) FOR IV START INTRADERMA ONE (09:15)
[2019-02-10] MEDS ORDERED: PROPOFOL 10 MG/ML 20 ML VIAL IV ONE (09:47)
[2019-02-10] MEDS ORDERED: LIDOCAINE 1% INJ 10MG/ML (20 ML MDV) ONE (09:47)
[2019-02-10 10:53] VITALS: BP 144/97; PULSE 82
--- NOTE | 2019-02-10 11:06 | P.PCN ---
Date of Procedure: 02/10/19 Procedure(s) Performed: Procedure: 1. Esophagogastroduodenoscopy and biopsy. 2. Total colonoscopy. Preoperative diagnosis: Epigastric pain and rectal bleeding. Postoperative diagnosis: 1. Small sliding hiatal hernia with no obvious esophagitis or complicated reflux disease. 2. Mild antral gastritis. 3. Grade II internal hemorrhoids not bleeding at the time of the examination, otherwise exam of the colon reveals less than ideal preparation but no obvious pathology or bleeding. Preparation: HalfLytely prep. Sedation: Was provided by anesthesia. Brief clinical history: The patient is a 49-year-old female who is scheduled for this evaluation because of intermittent rectal bleeding over the last few weeks. The bleeding has been bright red and painless. She has history of constipation predominant irritable bowel syndrome for the last 4 years or so and has been having epigastric and right-sided abdominal pain for the last 2 years. Procedure: With the patient on her left lateral decubitus position and after informed consent and adequate sedation, I passed a Olympus-GIF H 190 video upper endoscope through the cricopharyngeus down the esophagus. GE junction was around 38 cm from the incisors and there was a small sliding hiatal hernia but no obvious esophagitis or complicated reflux disease. The endoscope was then passed into the stomach which was insufflated with air and inspected in detail including the retroflex view in the cardia. There was some mottling and erythema in the antrum but no ulcers or erosions. Pyloric channel, duodenal bulb, post bulbar area and descending duodenum appeared within normal limits. I obtained biopsies from the duodenum, antrum and esophagus then the endoscope was withdrawn and I proceeded to perform the colonoscopy. Perianal area did not show any fissures or fistulas. There were no masses felt on digital rectal examination. The Olympus CFH 190L video colonoscope was then inserted in the rectum in the usual fashion and advanced to the cecum. The preparation was less than ideal. There was no obvious polyps or tumors. The mucosa appeared healthy. No obvious diverticular disease or bleeding. I retroflexed the endoscope in the rectum before the endoscope was withdrawn. Low-grade internal hemorrhoids were noted with no evidence of bleeding. The patient tolerated the procedure well. Plan: The patient was reassured. Will await biopsy results. Discussed dietary measures and local care for hemorrhoids. Because of less than ideal preparation, I am recommending repeat exam in 3-5 years before going with a 10- year schedule. She will follow-up with you as planned.
== END 2019-02-10 11:17 | disposition home or self-care (01) ==
LOC: ORWHC2ENDO 08:45
DX: K29.50 Unspecified chronic gastritis without bleeding (principal); K44.9 Diaphragmatic hernia without obstruction or gangrene; K64.1 Second degree hemorrhoids; K62.5 Hemorrhage of anus and rectum; K58.1 Irritable bowel syndrome with constipation; I25.10 Atherosclerotic heart disease of native coronary artery without angina pectoris; I10 Essential (primary) hypertension; K21.9 Gastro-esophageal reflux disease without esophagitis; M19.90 Unspecified osteoarthritis, unspecified site; G43.909 Migraine, unspecified, not intractable, without status migrainosus; F41.9 Anxiety disorder, unspecified; I25.2 Old myocardial infarction; F17.210 Nicotine dependence, cigarettes, uncomplicated; Z87.442 Personal history of urinary calculi; Z79.899 Other long term (current) drug therapy; Z88.5 Allergy status to narcotic agent; Z88.8 Allergy status to other drugs, medicaments and biological substances
CPT/HCPCS: 88305; 45378; 43239; J2001; J2704

== ENCOUNTER → 2019-07-07 | Outpatient (CLI) | payer MEDICARE, OTHER ==
--- NOTE | 2019-07-07 09:06 | US ---
EXAMINATION TYPE: US abdomen complete DATE OF EXAM: 07/07/2019 COMPARISON: CT dated 04/10/2018 CLINICAL HISTORY: R10.9 ABD/PELVIC PAIN,R10.9 FLANK PAIN. NPO EXAM MEASUREMENTS: Liver Length: 14.1 cm Gallbladder Wall: 0.2 cm CBD: 0.4 cm Spleen: 10.6 cm Right Kidney: 11.0 x 5.5 x 4.5 cm Left Kidney: 12.6 x 4.2 x 4.8 cm Pancreas: Within normal limits Liver: wnl Gallbladder: Multiple mobile echogenic foci Evidence for sonographic Lizarraga's sign: neg CBD: wnl Spleen: wnl Right Kidney: wnl Left Kidney: wnl Upper IVC: wnl Abd Aorta: No AAA visualized The liver is homogenous. The intrahepatic portion of the IVC and proximal abdominal aorta are within normal limits. Common bile duct is unremarkable. The visualized portions of the pancreas are homoge nous. The spleen is unremarkable. Kidneys are symmetric and free of hydronephrosis. No renal lesio ns are seen. IMPRESSION: Cholelithiasis without sonographic evidence of acute cholecystitis.
--- NOTE | 2019-07-07 10:45 | US ---
EXAMINATION TYPE: US pelvic complete DATE OF EXAM: 07/07/2019 COMPARISON: None CLINICAL HISTORY: R10.9 ABD/PELVIC PAIN,R10.9 FLANK PAIN. Partial hysterectomy, right flank pain TECHNIQUE: Transabdominal (TA). Transabdominal sonographic images of the pelvis were acquired. Date of LMP: Partial hysterectomy EXAM MEASUREMENTS: Right Ovary: 2.1 x 1.3 x 1.2 cm Left Ovary: 2.7 x 1.2 x 1.4 cm 1. Uterus: Surgically absent 2. Endometrium: Surgically absent 3. Right Ovary: wnl 4. Left Ovary: wnl 5. Bilateral Adnexa: wnl 6. Posterior cul-de-sac: no free fluid IMPRESSION: Bilateral slight ovarian atrophy and surgical absence of the uterus. No suspicious adnexa l mass is seen.
== END | disposition home or self-care (01) ==
LOC: RADUSWWP 08:15
PROVIDERS: ATTEND Internal Medicine
DX: K80.20 Calculus of gallbladder without cholecystitis without obstruction (principal); N83.312 Acquired atrophy of left ovary; N83.311 Acquired atrophy of right ovary; Z90.710 Acquired absence of both cervix and uterus; Z91.013 Allergy to seafood
CPT/HCPCS: 76700; 76856

== ENCOUNTER → 2019-12-02 | Outpatient (CLI) | payer MEDICARE, OTHER ==
--- NOTE | 2019-12-02 10:24 | CT ---
EXAMINATION TYPE: CT abdomen pelvis w con DATE OF EXAM: 12/02/2019 COMPARISON: 04/10/2018 HISTORY: Righ flank pain CT DLP: 1401 mGycm CONTRAST: CT scan of the abdomen and pelvis is performed with Oral Contrast and with IV Contrast, patient injec coby with 1401 mL of Isovue 300. FINDINGS: LUNG BASES-: No visible nodule. No infiltrate. LIVER/GB: The gallbladder is surgically absent. No space occupying hepatic lesion. Biliary tree is of normal caliber. PANCREAS: No inflammation. No distinct mass. SPLEEN: No splenic enlargement. No lesion seen. ADRENALS: No nodule. No thickening. KIDNEYS/BLADDER: No hydronephrosis. 3 nonobstructing calculi left kidney measuring 3 mm or less. No right-sided nephrolithiasis. Subcentimeter right renal cyst midpole region. No distinct solid renal m ass. Urinary bladder grossly unremarkable. BOWEL: Normal appendix. Normal bowel caliber. No inflammation. GENITAL ORGANS: Hysterectomy changes noted. No evidence for adnexal or ovarian mass. LYMPH NODES: No greater than 1cm abdominal or pelvic lymph nodes are appreciated. AORTA: No significant abnormality. OSSEOUS STRUCTURES: No significant abnormality is seen. OTHER: No significant additional abnormality is seen. IMPRESSION: 1. Nonobstructing left-sided nephrolithiasis. No acute process to account for the patient's symptoms at this time.
== END | disposition home or self-care (01) ==
LOC: RADCTMAIN 07:52
PROVIDERS: ATTEND Internal Medicine
DX: N20.0 Calculus of kidney (principal); Z88.5 Allergy status to narcotic agent
CPT/HCPCS: 74177; Q9967

== ENCOUNTER → 2020-05-06 | Outpatient (CLI) | payer MEDICARE, OTHER ==
--- NOTE | 2020-05-06 13:40 | US ---
EXAMINATION TYPE: US thyroid st tissue head/neck DATE OF EXAM: 05/06/2020 COMPARISON: NONE CLINICAL HISTORY: R22.0 Swelling/mass. GLAND SIZE: Right Lobe: 5.9 x 1.6 1.8 cm Overall Parenchyma: heterogenous Left Lobe: 5.8 x 1.4 x 1.9 cm Overall Parenchyma: heterogeneous Isthmus Thickness: 0.3 cm NODULES RIGHT: # of nodules measured on right: 1 1. 1.7 X 1.4 x 1.6 cm hypoechoic solid nodule at the lower pole with well-defined margins; present with microcalcifications. This nodule is wider than tall and shows intranodular vascularity. Prior size: no prior LEFT: # of nodules measured on left: 2 1. 1.3 X 0.7 x 1.0 cm isoechoic solid nodule at the upper pole with well-defined margins; . This nodule is wider than tall and shows intranodular vascularity. Prior size: no prior 2. 0.8 X 0.6 x 0.8 cm hypoechoic solid nodule at the lower pole with well-defined margins; . This n odule is wider than tall and shows intranodular vascularity. Prior size: no prior ISTHMUS: # of nodules measured in the isthmus: 0 Bilateral neck scanned, no evidence of lymphadenopathy. Multiple sub centimeters lesions throughout both lobes. IMPRESSION: Thyromegaly with multinodular nodular thyroid. Largest nodule on the left measures 1.3 cm and 1.7 cm on the left. Heterogeneous tissue can be associated with thyroiditis correlate clinically.
== END | disposition home or self-care (01) ==
LOC: RADUSWWP 13:05
PROVIDERS: ATTEND Internal Medicine
DX: E04.1 Nontoxic single thyroid nodule (principal); Z88.5 Allergy status to narcotic agent
CPT/HCPCS: 76536

== ENCOUNTER → 2021-04-27 | Outpatient (CLI) | payer MEDICARE, OTHER ==
--- NOTE | 2021-04-27 13:35 | XR ---
EXAMINATION TYPE: XR chest 2V DATE OF EXAM: 04/27/2021 COMPARISON: 04/02/2013 HISTORY: Cough, phlegm, mucus and chest congestion TECHNIQUE: Frontal and lateral views of the chest are obtained. FINDINGS: Heart size is within normal limits. No focal consolidation, pneumothorax or pleural effusi on. Linear atelectasis or scarring seen on lateral view at the right middle lobe or lingula. IMPRESSION: 1. No acute pulmonary disease. 2. Linear atelectasis or scarring at the right middle lob or lingula seen on lateral view.
== END | disposition home or self-care (01) ==
LOC: RADXRMAIN 13:02
PROVIDERS: ATTEND Internal Medicine
DX: R05 Cough (principal); R09.89 Other specified symptoms and signs involving the circulatory and respiratory systems
CPT/HCPCS: 71046

== ENCOUNTER → 2021-05-16 | Outpatient (CLI) | payer MEDICARE, OTHER ==
--- NOTE | 2021-05-16 10:13 | US ---
EXAMINATION TYPE: US thyroid st tissue head/neck DATE OF EXAM: 05/16/2021 COMPARISON: CLINICAL HISTORY: E04.2 Multinodular goiter. Follow up nodules. Not on thyroid meds. GLAND SIZE: Right Lobe: 5.3 x 2.6 x 1.8 cm Overall Parenchyma: heterogenous Left Lobe: 5.0 x 2.0 x 1.6 cm Overall Parenchyma: heterogeneous Isthmus Thickness: 0.5 cm NODULES RIGHT: # of nodules measured on right: 2 Multiple subcentimeter nodules seen, largest measured 1. 1.8 X 1.3 x 1.3 cm, lower mid, mixed cystic and solid, hypoechoic nodule, which is wide as tall, with ill-defined margins, with echogenic foci. Prior size: 1.7 x 1.4 x 1.6 cm 2. 0.7 X 0.5 x 0.4 cm, mid lateral, mixed cystic and solid, hypoechoic nodule, which is wider than tall, with ill-defined margins, without echogenic foci. Prior size: Not measured previously LEFT: # of nodules measured on left: 2 Multiple subcentimeter nodules seen, largest measured 1. 1.2 X 0.9 x 0.7 cm, upper mid, mixed cystic and solid, isoechoic nodule, which is wider than mercy l, with smooth margins, without echogenic foci. Prior size: 1.3 x 0.7 x 1.0 cm 2. 0.8 X 0.7 x 0.6 cm, mid medial, mixed cystic and solid, hypoechoic nodule, which is wider than tall, with smooth margins, without echogenic foci. Prior size: 0.8 x 0.6 x 0.8 cm ISTHMUS: # of nodules measured in the isthmus: 1 1. 1.0 X 1.1 x 0.6 cm right lateral mixed cystic and solid, hypoechoic nodule, which is wider than tall, with smooth margins, without echogenic foci. Prior size: not measured previously Bilateral neck scanned, no evidence of lymphadenopathy. IMPRESSION: New right and isthmus nodules. Other nodules are unchanged. 2017 ACR TI-RADS LEVEL: TR-RADS 4 - Moderately Suspicious: Follow if > 1 cm, FNA if > 1.5 cm *Highest TI-RADS level nodule reported
[2021-05-16 11:37] LABS: T4, Free (Free Thyroxine) 0.98 ng/dL (0.78-2.19)
== END | disposition home or self-care (01) ==
LOC: RADUSWWP 09:10
PROVIDERS: ATTEND Internal Medicine
DX: E04.2 Nontoxic multinodular goiter (principal)
CPT/HCPCS: 76536; 84439; 84443; 84481; 86376

== ENCOUNTER 2022-03-15 05:33 | Day surgery (SDC) | payer MEDICARE, OTHER ==
--- NOTE | 2022-03-12 07:56 | P.GSHP ---
History of Present Illness H&P Date: 03/08/22 Chief Complaint: Left renal colic The patient is a 52-year-old white female with a history of urolithiasis. She underwent left ureteroscopy with laser lithotripsy as well as ESWL in 2018. She now presents back with left renal colic due to a 4 mm left proximal ureteral calculus. CT scan also reveals multiple left renal calculi measuring up to 7 mm in size. - Constitutional Constitutional: Reports chills, Denies fever - Gastrointestinal Gastrointestinal: Reports nausea, Reports vomiting - Genitourinary (Female) Genitourinary: Reports flank pain, Reports hematuria, Reports kidney stones Past Medical History Past Medical History: Chest Pain / Angina, GERD/Reflux, Hypertension, Myocardial Infarction (ND), Osteoarthritis (OA) Additional Past Medical History / Comment(s): Migraine, Kidney stones. IBS. Back pain with DDD, numbness/tingling LT LEG. Last Myocardial Infarction Date:: unknown History of Any Multi-Drug Resistant Organisms: None Reported Past Surgical History: Back Surgery, Section, Heart Catheterization, Hysterectomy, Joint Replacement, Orthopedic Surgery Additional Past Surgical History / Comment(s): Bilateral carpal tunnel. left total knee arthroplasty, multiple pain procedures, bilateral knee arthroscopy, Left ESWL, left ureteroscopy with laser lithotripsy Past Anesthesia/Blood Transfusion Reactions: Postoperative Nausea & Vomiting (PONV) Additional Past Anesthesia/Blood Transfusion Reaction / Comment(s): PONV W/ C-S X1. Past Psychological History: Anxiety, Depression Smoking Status: Former smoker Past Alcohol Use History: None Reported Past Drug Use History: Marijuana - Past Family History Father Family Medical History: Cancer Additional Family Medical History / Comment(s): BLADDER CA Medications and Allergies Home Medications Medication Instructions Recorded Confirmed Type Pregabalin [Lyrica] 150 mg PO HS 04/10/18 02/10/19 History SUMAtriptan SUCCINATE [Imitrex] 100 mg PO DAILY PRN 04/10/18 02/10/19 History amLODIPine [Norvasc] 10 mg PO HS 04/10/18 02/10/19 History Acetaminophen Tab [Tylenol Tab] 500 mg PO Q6H PRN 05/05/18 02/10/19 History Umeclidinium Brm/Vilanterol Tr 1 puff INHALATION DAILY 08/12/18 02/10/19 History [Anoro Ellipta 62.5-25 Mcg INH] Spironolactone [Aldactone] 100 mg PO DAILY 09/10/18 02/10/19 History Multivitamins, Thera [Multivitamin 1 tab PO DAILY 10/22/18 02/10/19 History (formulary)] Cholecalciferol [Vitamin D3] 400 unit PO DAILY 12/17/18 02/10/19 History Tagamet(Dose Unknown) 1 tab PO BID 02/06/19 02/10/19 History Allergies Allergy/AdvReac Type Severity Reaction Status Date / Time codeine Allergy headache Verified 02/12/22 15:57 gabapentin Allergy Itching Verified 02/12/22 15:57 Surgical - Exam - General well developed, well nourished, no distress - Neck no masses, trachea midline - Respiratory normal respiratory effort - Abdomen Abdomen: soft, tender (Mild left lower quadrant tenderness), no guarding, no rigid, no rebound - Psychiatric oriented to time, oriented to person, oriented to place, speech is normal, memory intact Results - Imaging CT scan - abdomen: report reviewed, image reviewed Assessment and Plan (1) Calculus of kidney Status: Acute Code(s): N20.0 - CALCULUS OF KIDNEY SNOMED Code(s): 42945173 (2) Calculus of ureter Status: Acute Code(s): N20.1 - CALCULUS OF URETER SNOMED Code(s): 56271237 Plan: Cystoscopy, left retrograde pyelogram, left ureteroscopy with Holmium laser lithotripsy and possible stone basketing, left ureteral stent insertion. The procedure has been reviewed in detail with the patient. She is aware of potential risks, which include anesthesia, bleeding, infection, inability to successfully remove the calculi, and ureteral injury. She is also aware of the possible need for secondary treatment.
[2022-03-14 09:52] VITALS: BMI 37.0
[~2022-03-15 05:33] MED LIST changes: -DEXAMETHASONE SOD PHOSPHATE 10 MG/ML 1 ML VIAL IV ONE; +DEXAMETHASONE SOD PHOSPHATE 4 MG/ML 1 ML VIAL IV ONE; +HYDROmorphone 0.5 MG/0.5 ML SYRINGE IVP PRN
--- NOTE | 2022-03-15 06:45 | XR ---
EXAMINATION TYPE: XR KUB DATE OF EXAM: 03/15/2022 COMPARISON: 05/07/2018 HISTORY: Lithotripsy. Kidney stones TECHNIQUE: Single view FINDINGS: There are small calcifications over the left kidney that measure up to 3 mm. No sign of int estinal obstruction or pneumoperitoneum. Fecal pattern is normal. There are phleboliths in the pelvis . IMPRESSION: Nonacute abdomen. No adverse change.
[2022-03-15] MEDS ORDERED: LIDOCAINE 1% (10MG/ML) FOR IV START INTRADERMA ONE (06:54)
[2022-03-15] MEDS ORDERED: ePHEDrine 50 MG/ML 1 ML VIAL ONE (07:39)
[2022-03-15] MEDS ORDERED: SUCCINYLCHOLINE CHLORIDE 100 MG/5 ML SYR IV ONE (07:39)
[2022-03-15] MEDS ORDERED: fentaNYL (PF) 50 MCG/ML 2 ML AMP ONE (07:39)
[2022-03-15] MEDS ORDERED: PROPOFOL 10 MG/ML 20 ML VIAL IV ONE (07:39)
[2022-03-15] MEDS ORDERED: MIDAZOLAM 2 MG/2 ML VIAL ONE (07:39)
[2022-03-15] MEDS ORDERED: LIDOCAINE 2% INJ 20 MG/ML (2 ML VIAL) ONE (07:39)
[2022-03-15] MEDS ORDERED: IOPAMIDOL-370 50ML BTL MISCELLANE ONE ×2 (08:09)
[2022-03-15] MEDS ORDERED: LACTATED RINGERS 1,000 ML IV ONE (08:36)
--- NOTE | 2022-03-15 08:48 | P.OP ---
Date of Procedure: 03/15/22 Preoperative Diagnosis: Left ureteral calculus, left renal calculi Postoperative Diagnosis: Left renal calculi Procedure(s) Performed: Cystoscopy, left retrograde pyelogram, left ureteroscopy with Holmium laser lithotripsy and stone basketing, left ureteral stent insertion Anesthesia: CATRACHITAA Surgeon: Eric Queen Estimated Blood Loss (ml): 0 IV fluids (ml): 900 Pathology: other (Calculi for chemical analysis) Condition: stable Disposition: PACU Indications for Procedure: The patient is a 52-year-old white female with a history of urolithiasis. She underwent left ureteroscopy with laser lithotripsy as well as ESWL in 2018. She now presents back with left renal colic due to a 4 mm left proximal ureteral calculus. CT scan also reveals multiple left renal calculi measuring up to 7 mm in size. Operative Findings: No left ureteral calculi seen. 2 left renal calculi removed completely. Description of Procedure: The patient was taken to the operating room and placed in the dorsolithotomy position, with legs supported in Manny stirrups. The external genitalia was prepped and draped sterilely. The 30 lens was used to introduce the 21-St Helenian Kern cystoscopic sheath through the urethra and into the bladder under direct vision. The bladder was examined in its entirety. Both ureteral orifices were normal anatomic location and configuration, and clear urine effluxed from both. No tumors or foreign bodies were seen. Using a 10-St Helenian cone-tipped catheter, a left retrograde pyelogram was performed. The ureter was normal in course and caliber, and there was no evidence of hydronephrosis. No calculi were seen. A 0.038 inch Glidewire was passed through the cystoscope. The left ureteral orifice was cannulated, and the Glidewire was advanced up to the renal pelvis. The cystoscope was removed, and an 11/13-St Helenian ureteral access catheter was passed over the wire, up to the proximal ureter. The RIDERS flexible ureteroscope was then passed through the ureteral access catheter sheath, up to the renal pelvis. Each calyx was examined. Several Constantin's plaques were identified. A 4-5 mm stone was seen within a mid pole calyx, and a 2 mm stone was seen within a lower pole calyx. The 272 micron Holmium laser probe was passed through the ureteroscope, and the mid pole calculus was fragmented into 2 pieces. Several of the Constantin's plaques were fragmented. A 1.9-St Helenian nitinol basket was then passed through the ureteroscope, and the lower pole calyceal calculus was removed via Stone basketing, as were the 2 pieces of the mid pole calculus. The Glidewire was then passed through the ureteral access catheter sheath, which was removed. The Glidewire was backloaded into the cystoscope, which was passed into the bladder. A 24 cm, 4.8-St Helenian double-J ureteral stent was placed over the wire. Proper stent positioning was verified fluoroscopically and endoscopically. The bladder was emptied and the cystoscope removed. The patient tolerated the procedure well and was taken to the recovery room in stable condition. MUSIC ROCKS Report: Procedure Acuity: Elective Stone Size and Location: 4-5 mm, left mid pole calyx Ureteral Dilation: No Ureteral Access Sheath Used: Yes Stone Sent for Analysis: Yes All Stones/Fragments Were Removed with a Basket: Yes Complications: No Preoperative Antibiotics Given: Yes Stent Placed: Yes If Stent Placed, Was String Left Attached: No If Stent Placed, When is it to be Removed: 1 week Discharge Medications: None
[2022-03-15 09:01] VITALS: TEMP 96.8
[2022-03-15 09:22] VITALS: RESP 16
[2022-03-15 09:46] VITALS: BP 112/75; PULSE 81
--- NOTE | 2022-03-15 12:27 | FL ---
EXAMINATION TYPE: FL urography retrograde DATE OF EXAM: 03/15/2022 FLUOROSCOPY Fluoroscopy time of 17 seconds was used during urologic intervention for left-sided stones. 4 image/ s document/s the procedure.
== END 2022-03-15 10:03 | disposition home or self-care (01) ==
LOC: OR 05:33
PROVIDERS: ATTEND Urology
DX: N20.2 Calculus of kidney with calculus of ureter (principal); I10 Essential (primary) hypertension; I25.2 Old myocardial infarction; K21.9 Gastro-esophageal reflux disease without esophagitis; K58.9 Irritable bowel syndrome, unspecified; M19.90 Unspecified osteoarthritis, unspecified site; Z87.442 Personal history of urinary calculi; Z87.891 Personal history of nicotine dependence
CPT/HCPCS: 52356; 82365; 74420; 74018; C2625; C1758; C1769; J2250; J1100; J0690; J2405; J3010; J0330; J2704; Q9967; J2001

== ENCOUNTER → 2022-04-24 | Outpatient (CLI) | payer MEDICARE, OTHER ==
[2022-04-24 14:32] LABS: HCT 44.1 % (37.2-46.3); MCH 27.8 pg (27.0-32.0); MCHC 31.7 g/dL (32.0-37.0); MCV 87.5 fL (80.0-97.0); Mean Platelet Volume 11.2 fL (9.5-12.2); NRBC Per 100 WBC 0 /100 WBCS (0.0-0.0); Platelet Count 325 X 10*3/uL (140-440); RBC 5.04 X 10*6/uL (4.10-5.20); RDW 13.2 % (11.5-14.5); WBC 10.47 X 10*3/uL (4.50-10.00)
[2022-04-24 14:50] LABS: Chol/HDL Ratio 4.74 Ratio; LDL Cholesterol,Calculated 117.1 mg/dL (0.0-131.0)
[2022-04-24 15:13] LABS: AST 19 U/L (13-35); African American GFR (CKD) 121.5 (60.0-200.0); BUN/Creat Ratio 18.09 Ratio (12.00-20.00); Blood Urea Nitrogen 10.4 mg/dL (9.0-27.0); Chloride 105 mmol/L (96-109); Glucose 95 mg/dL (70-110); Non-African American GFR(CKD) 104.8 (60.0-200.0); Potassium 3.8 mmol/L (3.5-5.5); Sodium 142 mmol/L (135-145)
[2022-04-24 15:14] LABS: ALT 12 U/L (8-44)
== END | disposition home or self-care (01) ==
LOC: LABWHC1 09:09
PROVIDERS: ATTEND Internal Medicine Cardiovascular Disease
DX: I10 Essential (primary) hypertension (principal); F17.210 Nicotine dependence, cigarettes, uncomplicated; R06.02 Shortness of breath; R07.2 Precordial pain
CPT/HCPCS: 36415; 80048; 80061; 83036; 84443; 84450; 84460; 85027

== ENCOUNTER 2022-07-11 12:27 | Emergency (ER) | payer MEDICARE, OTHER ==
[2022-07-11 12:58] VITALS: TEMP 98.1
[2022-07-11 13:54] LABS: Appearance,Urine Cloudy (Clear); Bacteria,Urine Rare /hpf; Bilirubin,Urine Negative (Negative); Blood,Urine Negative (Negative); Color,Urine Yellow; Glucose,Urine (UA) Negative (Negative); Ketones,Urine Negative (Negative); Leukocyte Esterase,Urine Negative (Negative); Mucus,Urine Many /hpf; Nitrite,Urine Negative (Negative); Protein,Urine Trace (Negative); RBC,Urine 1 /hpf (0-5); Specific Gravity,Urine 1.019 (1.001-1.035); Squamous Epithelial Cell,Urine 7 /hpf (0-4); Urobilinogen,Urine <2.0 mg/dL (<2.0); WBC,Urine 2 /hpf (0-5)
[2022-07-11] MEDS ORDERED: KETOROLAC 15 MG/ML 1 ML VIAL IVP STA (14:56)
[2022-07-11] MEDS ORDERED: SODIUM CHLORIDE 0.9% 2,000 ML IV STA (14:56)
--- NOTE | 2022-07-11 15:26 | CT ---
EXAMINATION TYPE: CT abdomen pelvis wo con CT DLP: 802 mGycm, Automated exposure control for dose reduction was used. DATE OF EXAM: 07/11/2022 3:08 PM COMPARISON: None CLINICAL INDICATION:Female, 52 years old with history of left flank pain,hx of stone; left flank pain TECHNIQUE: Axial CT of the abdomen and pelvis. Sagittal and coronal reformats were created on a [employer] workstation. Contrast used:None Oral contrast used: without Oral Contrast FINDINGS: LOWER CHEST: the heart is mildly enlarged for size. ABDOMEN LIVER: Unremarkable GALLBLADDER AND BILE DUCTS: The gallbladder is surgically absent. PANCREAS: Fatty atrophy changes of the parenchyma. SPLEEN: Unremarkable. ADRENAL GLANDS: Unremarkable. KIDNEYS AND URETERS: Multiple left renal calculi which are nonobstructing measuring up to 4 mm. There is a 6 mm calculus at the pelvic inlet felt to be within the ureter. Evaluation slightly limited. No evidence of right hydronephrosis a renal calculus. PELVIS BLADDER: Unremarkable REPRODUCTIVE: Unremarkable. ABDOMEN & PELVIS STOMACH AND BOWEL: No evidence of bowel obstruction. PERITONEUM: No evidence of pneumoperitoneum or free fluid. VASCULATURE: Moderate atherosclerotic calcifications are present throughout the abdominal aorta and i ts branches. No evidence of aortic aneurysm. MUSCULOSKELETAL: No acute osseous abnormalities, Multilevel disc degeneration changes seen throughout the spine with retrolisthesis of L5 on S1. Scattered facet joint arthropathy changes. LYMPH NODES: No gross evidence for lymphadenopathy. SOFT TISSUE/ABDOMINAL WALL: Unremarkable IMPRESSION: Left 6 mm renal calculus at the pelvic inlet felt to be within the uterine now within the adjacent va scular structures.. Mild left hydronephrosis. Additional nonobstructing left renal calculi.
[2022-07-11 15:27] LABS: Basophils % (A) 0 %; Eosinophils # (A) 0.3 k/uL (0-0.7); Eosinophils % (A) 3 %; HCT 43.5 % (34.0-46.0); HGB 14.6 gm/dL (11.4-16.0); Lymphocytes # (A) 3.3 k/uL (1.0-4.8); Lymphocytes % (A) 33 %; MCH 29.5 pg (25.0-35.0); MCHC 33.5 g/dL (31.0-37.0); MCV 88.2 fL (80.0-100.0); Monocytes # (A) 0.7 k/uL (0-1.0); Monocytes % (A) 7 %; Neutrophils # (A) 5.5 k/uL (1.3-7.7); Neutrophils % (A) 56 %; Platelet Count 298 k/uL (150-450); RBC 4.94 m/uL (3.80-5.40); RDW 13.8 % (11.5-15.5); WBC 9.9 k/uL (3.8-10.6)
[2022-07-11 15:39] LABS: ALT 10 U/L (4-34); African American GFR (CKD) >90 (>60 ml/min/1.73 sqM); Albumin 4.4 g/dL (3.5-5.0); Anion Gap 12 mmol/L; Blood Urea Nitrogen 13 mg/dL (7-17); Calcium 9.2 mg/dL (8.4-10.2); Carbon Dioxide 21 mmol/L (22-30); Chloride 104 mmol/L (98-107); Glucose 89 mg/dL (74-99); Lipase 30 U/L (23-300); Non-African American GFR(CKD) >90 (>60 ml/min/1.73 sqM); Sodium 137 mmol/L (137-145); Total Bilirubin 0.5 mg/dL (0.2-1.3); Total Protein 7.1 g/dL (6.3-8.2)
[2022-07-11] MEDS ORDERED: TAMSULOSIN 0.4 MG CAP.ER.24H PO STA (15:46)
[2022-07-11 16:19] LABS: Potassium 4.3 mmol/L (3.5-5.1)
[2022-07-11 16:20] LABS: AST 21 U/L (14-36); Alkaline Phosphatase 94 U/L (38-126)
--- NOTE | 2022-07-11 16:33 | ED ---
Abdominal Pain HPI - General Chief Complaint: Abdominal Pain Stated Complaint: left side pain Time Seen by Provider: 07/11/22 14:43 Source: patient Mode of arrival: ambulatory Limitations: no limitations - History of Present Illness Initial Comments: Patient is a 52-year-old female who presents to the emergency department with a chief complaint of left side pain. Patient states the pain started one week ago in her left side with radiation to the back. Reports history of kidney stones with lithotripsy a few months ago by Dr. Snowden. Has not taken anything for pain. Does notice blood in her urine. Denies fever, chills, nausea, vomiting, burning with urination. - Related Data Home Medications Medication Instructions Recorded Confirmed SUMAtriptan succinate [Imitrex] 100 mg PO DAILY PRN 04/10/18 07/11/22 amLODIPine [Norvasc] 10 mg PO HS 04/10/18 07/11/22 Acetaminophen Tab [Tylenol Tab] 500 mg PO Q6H PRN 05/05/18 07/11/22 Losartan [Cozaar] 25 mg PO HS 03/14/22 07/11/22 Omeprazole [PriLOSEC] 40 mg PO HS 03/14/22 07/11/22 Previous Rx's Medication Instructions Recorded Tamsulosin [Flomax] 0.4 mg PO DAILY #7 cap 07/11/22 Allergies Allergy/AdvReac Type Severity Reaction Status Date / Time codeine Allergy Headache & Verified 07/11/22 16:32 Itching gabapentin Allergy Itching Verified 07/11/22 16:32 Review of Systems ROS Statement: Those systems with pertinent positive or pertinent negative responses have been documented in the HPI. ROS Other: All systems not noted in ROS Statement are negative. Past Medical History Past Medical History: GERD/Reflux, Hypertension, Myocardial Infarction ([place]), Osteoarthritis ([place]), Pneumonia, Skin Disorder Additional Past Medical History / Comment(s): Migraines, Kidney stones. Back pain with DDD, numbness/tingling LT LEG, ulcer, hiatal hernia, dry skin, 3 thyroid nodules, frequent nighttime urination Last Myocardial Infarction Date:: unknown History of Any Multi-Drug Resistant Organisms: None Reported Past Surgical History: Back Surgery, Section, Cholecystectomy, Heart Catheterization, Hysterectomy, Joint Replacement, Orthopedic Surgery Additional Past Surgical History / Comment(s): Bilateral carpal tunnel. left total knee arthroplasty, multiple pain procedures, bilateral knee arthroscopy, Left ESWL, left ureteroscopy with laser lithotripsy, oral surgery Past Anesthesia/Blood Transfusion Reactions: Postoperative Nausea & Vomiting (PONV) Additional Past Anesthesia/Blood Transfusion Reaction / Comment(s): PONV W/ C-S X1. Past Psychological History: Anxiety, Panic Disorder Smoking Status: Current every day smoker Past Alcohol Use History: None Reported Past Drug Use History: Marijuana - Past Family History Father Family Medical History: Cancer Additional Family Medical History / Comment(s): BLADDER CA General Exam Limitations: no limitations General appearance: alert Head exam: Present: atraumatic, normocephalic, normal inspection Respiratory exam: Present: normal lung sounds bilaterally. Absent: respiratory distress, wheezes, rales, rhonchi, stridor Cardiovascular Exam: Present: regular rate, normal rhythm, normal heart sounds. Absent: systolic murmur, diastolic murmur, rubs, gallop, clicks Back exam: Present: CVA tenderness (L) Neurological exam: Present: alert, oriented X3, CN II-XII intact Psychiatric exam: Present: normal affect, normal mood Skin exam: Present: warm, dry, intact, normal color. Absent: rash Course Vital Signs 07/11/22 07/11/22 07/11/22 12:55 15:57 16:58 Temperature 98.1 F Pulse Rate 78 65 71 Respiratory 16 17 16 Rate Blood Pressure 109/73 127/78 123/79 O2 Sat by Pulse 98 100 99 Oximetry Medical Decision Making - Medical Decision Making This is a 52-year-old female with left flank pain. Patient is well-appearing. Vitals within normal limits. There is left CVA tenderness. Laboratory studies obtained. There is no leukocytosis. There is good kidney function. CT of the abdomen and pelvis without contrast shows a 6 mm calculus at the pelvic inlet felt to be within the ureter with mild left hydronephrosis. Pain controlled. Flomax given. Patient doing well and can manage symptoms at home. She will be prescribed Flomax and follow-up with Dr. Queen. Dr. Pacheco is my attending. - Lab Data Result diagrams: 07/11/22 15:13 07/11/22 15:13 Lab Results 07/11/22 07/11/22 07/11/22 Range/Units 13:44 15:13 15:13 WBC 9.9 (3.8-10.6) k/uL RBC 4.94 (3.80-5.40) m/uL Hgb 14.6 (11.4-16.0) gm/dL Hct 43.5 (34.0-46.0) % MCV 88.2 (80.0-100.0) fL MCH 29.5 (25.0-35.0) pg MCHC 33.5 (31.0-37.0) g/dL RDW 13.8 (11.5-15.5) % Plt Count 298 (150-450) k/uL MPV 8.0 Neutrophils % 56 % Lymphocytes % 33 % Monocytes % 7 % Eosinophils % 3 % Basophils % 0 % Neutrophils # 5.5 (1.3-7.7) k/uL Lymphocytes # 3.3 (1.0-4.8) k/uL Monocytes # 0.7 (0-1.0) k/uL Eosinophils # 0.3 (0-0.7) k/uL Basophils # 0.0 (0-0.2) k/uL Sodium 137 (137-145) mmol/L Potassium 4.3 (3.5-5.1) mmol/L Chloride 104 (98-107) mmol/L Carbon Dioxide 21 L (22-30) mmol/L Anion Gap 12 mmol/L BUN 13 (7-17) mg/dL Creatinine 0.59 (0.52-1.04) mg/dL Est GFR (CKD-EPI)AfAm >90 (>60 ml/min/1.73 sqM) Est GFR (CKD-EPI)NonAf >90 (>60 ml/min/1.73 sqM) Glucose 89 (74-99) mg/dL Calcium 9.2 (8.4-10.2) mg/dL Total Bilirubin 0.5 (0.2-1.3) mg/dL AST 21 (14-36) U/L ALT 10 (4-34) U/L Alkaline Phosphatase 94 (38-126) U/L Total Protein 7.1 (6.3-8.2) g/dL Albumin 4.4 (3.5-5.0) g/dL Lipase 30 (23-300) U/L Urine Color Yellow Urine Appearance Cloudy H (Clear) Urine pH 6.0 (5.0-8.0) Ur Specific Hardin 1.019 (1.001-1.035) Urine Protein Trace H (Negative) Urine Glucose (UA) Negative (Negative) Urine Ketones Negative (Negative) Urine Blood Negative (Negative) Urine Nitrite Negative (Negative) Urine Bilirubin Negative (Negative) Urine Urobilinogen <2.0 (<2.0) mg/dL Ur Leukocyte Esterase Negative (Negative) Urine RBC 1 (0-5) /hpf Urine WBC 2 (0-5) /hpf Ur Squamous Epith Cells 7 H (0-4) /hpf Urine Bacteria Rare H (None) /hpf Urine Mucus Many H (None) /hpf Disposition Clinical Impression: Kidney stone, Left flank pain Disposition: HOME SELF-CARE Condition: Good Instructions (If sedation given, give patient instructions): Kidney Stones (ED) Additional Instructions: Take medication as directed. Take an anti-inflammatory such as Motrin or Aleve for pain. Follow-up with urologist in one to days. Return to the emergency department if you experience new, concerning, or worsening symptoms. Prescriptions: Tamsulosin [Flomax] 0.4 mg PO DAILY #7 cap Is patient prescribed a controlled substance at d/c from ED?: No Referrals: Sean Cunha MD [Primary Care Provider] - 1-2 days Time of Disposition: 16:33
[2022-07-11 16:59] VITALS: BP 123/79; PULSE 71; RESP 16
== END 2022-07-11 17:02 | disposition home or self-care (01) ==
LOC: EC 12:27
DX: N20.0 Calculus of kidney (principal); K21.9 Gastro-esophageal reflux disease without esophagitis; Z79.83 Long term (current) use of bisphosphonates; I10 Essential (primary) hypertension; Z82.49 Family history of ischemic heart disease and other diseases of the circulatory system; Z88.5 Allergy status to narcotic agent; Z88.8 Allergy status to other drugs, medicaments and biological substances; F17.200 Nicotine dependence, unspecified, uncomplicated
CPT/HCPCS: 36415; 80053; 83690; 85025; 81001; 74176; 99284; 96374; 96361; J1885

== ENCOUNTER → 2022-07-17 | Outpatient (CLI) | payer MEDICARE, OTHER ==
--- NOTE | 2022-07-17 13:50 | XR ---
EXAMINATION TYPE: XR KUB DATE OF EXAM: 07/17/2022 HISTORY: N20.1 calculus Comparison: KUB 03/15/2022, CT abdomen and pelvis 07/11/2022 Technique: Single KUB is submitted for interpretation. Findings: Right renal calculi: None Visualized. Right ureteral calculi: None Visualized. Left renal calculi: None Visualized. Left ureteral calculi: None Visualized. Pelvic calcifications: Pelvic phleboliths redemonstrated. Bowel gas pattern is unremarkable. No free air. No mass effects. Cholecystectomy clips in the right upper quadrant. IMPRESSION: No definitive renal or ureteral calcifications.
== END | disposition home or self-care (01) ==
LOC: RADXRMAIN 12:39
PROVIDERS: ATTEND Urology
DX: N20.1 Calculus of ureter (principal)
CPT/HCPCS: 74018

== ENCOUNTER → 2024-12-29 | Outpatient (CLI) | payer MEDICARE, OTHER ==
[2024-12-29 16:40] LABS: Blood Urea Nitrogen 8.8 mg/dL (9.0-27.0); Carbon Dioxide 26.4 mmol/L (21.6-31.8); Chloride 106 mmol/L (96-109); Potassium 4.5 mmol/L (3.5-5.5); Sodium 143 mmol/L (135-145)
[2024-12-29 16:45] LABS: HCT 45.4 % (37.2-46.3); HGB 14.5 g/dL (12.0-15.0); MCH 28.6 pg (27.0-32.0); MCHC 31.9 g/dL (32.0-37.0); MCV 89.5 FL (80.0-97.0); Mean Platelet Volume 11.2 FL (9.5-12.2); NRBC Per 100 WBC 0 X 10*3/uL (0.00-0.01); Platelet Count 352 X 10*3/uL (140-440); RBC 5.07 X 10*6/uL (4.10-5.20); WBC 8.89 X 10*3/uL (4.50-10.00)
== END | disposition home or self-care (01) ==
LOC: LABPAT 08:54
PROVIDERS: ATTEND Internal Medicine Cardiovascular Disease
DX: Z01.812 Encounter for preprocedural laboratory examination (principal); R94.39 Abnormal result of other cardiovascular function study
CPT/HCPCS: 36415; 80051; 82565; 84520; 85027

== ENCOUNTER 2025-01-06 07:32 | Day surgery (SDC) | payer MEDICARE, OTHER ==
[2025-01-04 15:41] VITALS: BMI 38.9
[2025-01-06] MEDS ORDERED: ALPRAZolam 0.25 MG TAB PO PRN (07:43)
[2025-01-06] MEDS ORDERED: NITROGLYCERIN SL TABS 0.4 MG TAB SUBLINGUAL PRN (07:43)
[2025-01-06] MEDS ORDERED: ALPRAZolam 0.5 MG TAB PO PRN (07:43)
[2025-01-06 07:53] VITALS: RESP 16; TEMP 97.9
[2025-01-06] MEDS: ASPIRIN 325 MG TAB PO STA (07:54)
[2025-01-06] MEDS: ATORVASTATIN 80 MG TAB PO STA (07:54)
[2025-01-06] MEDS: SODIUM CHLORIDE 0.9% 1,000 ML in EMPTY BAG 1 BAG IV SCH (07:54)
[2025-01-06] MEDS: IV FLUID CONTINUATION 1,000 ML IV ONE (08:00)
[2025-01-06] MEDS: HEPARIN SODIUM,PORCINE (1 ML) 2,500 UNIT in SODIUM CHLORIDE 0.9% 250 ML IRRIGATION PRN (09:12)
[2025-01-06] MEDS: HEPARIN SODIUM,PORCINE 10,000 UNIT in SODIUM CHLORIDE 0.9% 1,000 ML IRRIGATION PRN (09:12)
[2025-01-06] MEDS: fentaNYL (PF) 50 MCG/1 ML VIAL IVP ONE (09:23)
[2025-01-06] MEDS: MIDAZOLAM 2 MG/2 ML VIAL IVP ONE (09:23)
[2025-01-06] MEDS: LIDOCAINE 1% INJ 10MG/ML (20 ML MDV) SQ ONE (09:23)
[2025-01-06] MEDS: VERAPAMIL SYRINGE (5 MG/10 ML) INTRAARTER ONE (09:27)
[2025-01-06] MEDS: IOPAMIDOL-250 100ML BTL INTRAARTER ONE (09:37)
[2025-01-06] MEDS: HEPARIN SODIUM 1,000 UN/ML (10ML VL) IVP ONE (09:42)
--- NOTE | 2025-01-06 09:59 | CC ---
CARDIAC CATHETERIZATION REPORT INDICATION: Chest pain with abnormal stress test, showing ischemia involving mid anterior wall. PROCEDURE NOTE: After obtaining informed consent, left heart catheterization and coronary angiogram were performed with the right radial artery using standard Mahesh catheters. The patient tolerated the procedure well without any obvious immediate complications. Total sedation time was 13 minutes. Right radial artery access was obtained using Seldinger technique. A 6-Dominican sheath was placed. Catheters and wires were floated into the ascending aorta under fluoroscopic guidance. The patient received verapamil and heparin per protocol. FINDINGS: 1. Hemodynamics: Left ventricular end-diastolic pressure is 8 to 12 mmHg. There is no significant gradient across the aortic valve. 2. Left ventriculogram: Left ventriculogram is not performed. 3. Angiographic data: a.Right coronary artery: The right coronary artery is a large dominant vessel and is free of significant stenosis. b.Left main coronary artery is a short vessel and is free of disease, divides into left anterior descending coronary artery and circumflex coronary artery. c.LAD and its branches, circumflex coronary artery and its branches are free of significant stenosis. CONCLUSIONS: 1. Normal coronary arteries. 2. Normal left ventricular end-diastolic pressure. PLAN: The patient's chest discomfort is noncardiac in origin and the stress test is a false- positive stress test. The patient's management is going to be in the form of risk factor modification and optimal medical therapy disease. MMODL / IJN: [id number] /
[2025-01-06 18:03] VITALS: BP 141/66; PULSE 77
== END 2025-01-06 13:33 | disposition home or self-care (01) ==
LOC: CATHCVL 07:32
PROVIDERS: ATTEND Internal Medicine Cardiovascular Disease
DX: R93.1 Abnormal findings on diagnostic imaging of heart and coronary circulation (principal); I10 Essential (primary) hypertension; F17.210 Nicotine dependence, cigarettes, uncomplicated; Z88.9 Allergy status to unspecified drugs, medicaments and biological substances; Z88.5 Allergy status to narcotic agent; Z79.82 Long term (current) use of aspirin; Z79.899 Other long term (current) drug therapy
CPT/HCPCS: 99152; 93458; J2250; J1644 ×3; J2003; Q9966; J3010

== ENCOUNTER → 2025-04-12 | Outpatient (CLI) | payer MEDICARE, OTHER ==
[2025-04-12 16:17] LABS: Prothrombin Time 10.8 sec (10.0-12.5)
[2025-04-12 18:31] LABS: HGB 14.6 g/dL (12.0-15.0); MCH 28.7 pg (27.0-32.0); MCHC 32.4 g/dL (32.0-37.0); MCV 88.4 FL (80.0-97.0); NRBC Per 100 WBC 0 X 10*3/uL (0.00-0.01); Platelet Count 296 X 10*3/uL (140-440); RBC 5.09 X 10*6/uL (4.10-5.20); RDW 13.5 % (11.5-14.5); WBC 9.42 X 10*3/uL (4.50-10.00)
[2025-04-12 21:10] LABS: Blood Urea Nitrogen 12.4 mg/dL (9.0-27.0); Calcium 9.4 mg/dL (8.7-10.3); Carbon Dioxide 23.7 mmol/L (21.6-31.8); Chloride 104 mmol/L (96-109); Glucose 113 mg/dL (70-110); Sodium 140 mmol/L (135-145)
== END | disposition home or self-care (01) ==
LOC: LABPAT 15:07
PROVIDERS: ATTEND Orthopaedic Surgery
DX: Z01.812 Encounter for preprocedural laboratory examination (principal); M17.11 Unilateral primary osteoarthritis, right knee; Z22.322 Carrier or suspected carrier of Methicillin resistant Staphylococcus aureus
CPT/HCPCS: 80048; 85027; 85610

== ENCOUNTER → 2025-04-19 | Outpatient (CLI) | payer MEDICARE, OTHER | END | disposition home or self-care (01) | LOC: LABPAT 12:44 | PROVIDERS: ATTEND Orthopaedic Surgery | DX: Z01.812 Encounter for preprocedural laboratory examination (principal); M71.10 Other infective bursitis, unspecified site; Z22.322 Carrier or suspected carrier of Methicillin resistant Staphylococcus aureus | CPT/HCPCS: 87070 ==

== ENCOUNTER 2025-04-22 05:32 | Day surgery (SDC) | payer MEDICARE, OTHER ==
--- NOTE | 2025-04-21 14:23 | HP ---
HISTORY AND PHYSICAL DATE OF SURGERY: 04/22/2025. HISTORY OF PRESENT ILLNESS: Chavo Nava is a 55-year-old patient, seen with symptomatic right knee osteoarthritis after having treatment options discussed, status post right total knee arthroplasty. Consent was obtained. Cardiac clearance was provided. PAST MEDICAL HISTORY: Hypertension, cardiovascular disease. PAST SURGICAL HISTORY: Left total knee arthroplasty. DAILY MEDICATIONS: None reported. SOCIAL HISTORY: She denies tobacco use. PHYSICAL EVALUATION OF THE RIGHT KNEE: Her range of motion is -3/4 to 110 degrees. Moderate effusion. Tenderness, medial joint line. Crepitus, medial patellofemoral compartments with range of motion. Pain with patellofemoral compression. Ligaments stable. Hip rotation without pain. Distal neurovascular exam is intact. IMAGING STUDIES: Radiographs of the right knee reveal severe osteoarthritic changes. IMPRESSION: Right knee osteoarthritis. PLAN: Right total knee arthroplasty. Surgery is scheduled for 04/22/2025. MMODL / IJN: [id number] /
[~2025-04-22 05:32] MED LIST changes: -DEXAMETHASONE SOD PHOSPHATE 4 MG/ML 1 ML VIAL IV ONE; -HYDROmorphone 0.5 MG/0.5 ML SYRINGE IVP PRN; -LACTATED RINGERS 1,000 ML IV SCH; -ONDANSETRON 4 MG/2 ML VIAL IVP ONE; +TRANEXAMIC 1,000 MG/100ML-NACL 1,000 MG in SALINE 1 100ML.BAG IVPB PRN
[2025-04-22] MEDS: LIDOCAINE 1% (10MG/ML) FOR IV START INTRADERMA PRN (06:46)
[2025-04-22] MEDS: LACTATED RINGERS 1,000 ML IV SCH (06:46)
[2025-04-22] MEDS: IV FLUID CONTINUATION 1,000 ML IV ONE ×3 (06:46→13:59)
[2025-04-22] MEDS: ACETAMINOPHEN TAB 500 MG TAB PO PRN (06:47)
[2025-04-22] MEDS: ONDANSETRON 4 MG/2 ML VIAL IVP ONE (06:47)
[2025-04-22] MEDS: MELOXICAM 7.5 MG TAB PO PRN (06:47)
[2025-04-22] MEDS: DEXAMETHASONE SOD PHOSPHATE 4 MG/ML 1 ML VIAL IV ONE (06:48)
[2025-04-22] MEDS: MIDAZOLAM 2 MG/2 ML VIAL IV PRN (07:00)
[2025-04-22] MEDS: fentaNYL (PF) 50 MCG/ML 2 ML AMP IVP PRN (07:10)
[2025-04-22] MEDS ORDERED: NEOSTIGMINE 1 MG/ML 10 ML VIAL ONE (07:25)
[2025-04-22] MEDS ORDERED: SUCCINYLCHOLINE CHLORIDE 200 MG/10 ML VIAL IV ONE (07:25)
[2025-04-22] MEDS ORDERED: HYDROmorphone (PF) 1 MG/ML ONE (07:25)
[2025-04-22] MEDS ORDERED: ROCURONIUM 10 MG/ML (5 ML VIAL) IV ONE (07:25)
[2025-04-22] MEDS ORDERED: ePHEDrine 50 MG/ML 1 ML VIAL ONE (07:25)
[2025-04-22] MEDS ORDERED: LIDOCAINE 4% LTA KIT (4 ML) TOPICAL ONE (07:25)
[2025-04-22] MEDS ORDERED: ROPIVACAINE 5 MG/ML 30 ML VIAL ONE (07:25)
[2025-04-22] MEDS ORDERED: KETAMINE HCL IN 0.9 % NACL 50 MG/5 ML SYRINGE ONE (07:25)
[2025-04-22] MEDS ORDERED: PROPOFOL 10 MG/ML 20 ML VIAL IV ONE (07:25)
[2025-04-22] MEDS ORDERED: fentaNYL (PF) 50 MCG/ML 2 ML AMP ONE (07:25)
[2025-04-22] MEDS ORDERED: WATER FOR INJECTION, STERILE 10 ML VIAL IV ONE (07:25)
[2025-04-22] MEDS ORDERED: LIDOCAINE 1% INJ 10MG/ML (20 ML MDV) ONE (07:25)
[2025-04-22] MEDS ORDERED: DEXAMETHASONE SOD PHOSPHATE 4 MG/ML 1 ML VIAL ONE (07:25)
[2025-04-22] MEDS ORDERED: GLYCOPYRROLATE 0.2 MG/ML 2 ML VIAL ONE (07:25)
[2025-04-22] MEDS ORDERED: TRANEXAMIC 1,000 MG/100ML-NACL PREMIX BAG ONE (07:25)
--- NOTE | 2025-04-22 07:28 | P.ANPRN ---
Procedure Note - Anesthesia - Nerve Block Performed Right iPack Single Time Out Performed: Yes Date of Procedure: 04/22/25 Procedure Start Time: 07:00 Procedure Stop Time: 07:05 Location of Patient: PreOp Sedation Type: Sedate with meaningful contact maintained Preparation: Sterile Prep Position: Left Lateral Catheter: None Needle Types: Pajunk Needle Gauge: 21 Ultrasound used to visualize needle placement: Yes Ultrasound used to observe medication spread: Yes Injectate: 0.5% Ropivacaine (see comment for volume) ([id number]) Blood Aspirated: No Pain Paresthesia on Injection Noted: No Resistance on Injection: Normal Image Stored and Saved: Yes Events: Uneventful and Well Tolerated
--- NOTE | 2025-04-22 07:29 | P.ANPRN ---
Procedure Note - Anesthesia - Nerve Block Performed Right Adductor Canal Infusion Time Out Performed: Yes Date of Procedure: 04/22/25 Procedure Start Time: 07:05 Procedure Stop Time: 07:10 Location of Patient: PreOp Indication: Acute Post-Operative Pain, Analgesia, Requested by Surgeon Sedation Type: Sedate with meaningful contact maintained Preparation: Sterile Prep Position: Supine Catheter: Indwelling Needle Types: On-Q Ultrasound used to visualize needle placement: Yes Ultrasound used to observe medication spread: Yes Injectate: 0.5% Ropivacaine (see comment for volume) ([id number]) Blood Aspirated: No Pain Paresthesia on Injection Noted: No Resistance on Injection: Normal Image Stored and Saved: Yes Events: Uneventful and Well Tolerated
[2025-04-22] MEDS: ceFAZolin 1,000 MG in SODIUM CHLORIDE 0.9% 1,000 ML IRRIGATION ONE (07:30)
[2025-04-22] MEDS ORDERED: HYDROmorphone 0.5 MG/0.5 ML SYRINGE IVP PRN (09:11)
[2025-04-22] MEDS ORDERED: NALOXONE 0.4 MG/ML 1 ML VIAL IV PRN (09:11)
[2025-04-22] MEDS ORDERED: ONDANSETRON 4 MG/2 ML VIAL IVP PRN (09:11)
--- NOTE | 2025-04-22 09:11 | P.OP ---
Date of Procedure: 04/22/25 Preoperative Diagnosis: Right knee osteoarthritis Postoperative Diagnosis: Right knee osteoarthritis Procedure(s) Performed: Right total knee arthroplasty Implants: 1. DePuy attune size 5 narrow right cruciate retaining cemented femur 2. DePuy attune size 4 fixed-bearing cemented tibial baseplate 3. DePuy attune size 5 fixed-bearing cruciate retaining 8 mm polyethylene tibial insert 4. DePuy attune 35 mm all polyethylene cemented patella Anesthesia: GETA, regional (Adductor canal catheter, iPAQ block) Surgeon: Callum Chowdary Foil Wrapper #1: Russ Garcia Estimated Blood Loss (ml): 50 Pathology: none sent Condition: stable Disposition: PACU Indications for Procedure: 55-year-old patient seen with symptomatic right knee osteoarthritis. After having treatment options discussed, she elected to proceed with total knee arthroplasty. Operative Findings: See description of procedure Description of Procedure: Patient was taken to the operative suite after having an adductor canal catheter placed by the department of anesthesia. Patient underwent a general anesthetic by the department of anesthesia. Patient was given preoperative IV intake antibiotics and TXA. A well-padded tourniquet was placed about the right lower extremity. The lower extremity was then prepped and draped in the normal sterile orthopedic fashion. The extremity was elevated, a tourniquet was insufflated to 300. A standard anterior incision was made sharply through skin. Dissection was taken down through the subcutaneous soft tissues down to the extensor mechanism. A medial arthrotomy was performed, patella was everted and knee was flexed. There was advanced osteoarthritis noted. I introduced my distal intramedullary femoral drill. I then introduced the distal femoral cutting jig. Efraín PALACIOS secured the cutting jig with 2 pins. I held retractors in position while Efraín PALACIOS performed the distal femoral resection through the guide area we now removed her distal femoral cutting guide. We now placed our 4-in-1 femoral cutting block and positioned and it was secured with 2 pins by Efraín PALACIOS while I held the block in position. The distal femoral finishing was now completed. A proximal tibial cutting guide was positioned. I held the guide in the appropriate position with both hands well Efraín PALACIOS inserted stabilizing pins into the guide. Proximal tibial cut was made. We now placed a trial femoral component into position, along with an appropriate size tibial tray and insert. We now took the knee through range of motion and had full extension good flexion and good overall soft tissue balance noted. The patella was everted and stabilized with 2 towel clips held by Efraín PALACIOS while I performed a flush with patellar quad tendon utilizing a fresh sawblade. We templated the patella, appropriate drill holes were made. An appropriate trial patella was positioned, knee was taken through full range of motion with the patella tracking very nicely. The trial patella was removed. Drill holes were made through the femoral component. All trial components were removed after marking off the appropriate rotation of the tibia. Retractors were now positioned along the proximal tibia. An appropriate keel punch was made with the appropriate size tibial guide by myself on Efraín PALACIOS assisted by holding retractors. At this point appropriate size implants were chosen and opened. The joint was irrigated copiously with pulse lavage mechanical irrigation. The wound was irrigated with pulse lavage mechanical irrigation. We mixed antibiotic methylmethacrylate. We placed the knee into flexion. We placed multiple retractors assisted by Efraín PALACIOS to expose the proximal tibia. Once the methyl methacrylate was ready, the tibial component was cemented into place removing any excess methylmethacrylate form by both myself and Efraín PALACIOS. The femoral component was cemented into place removing the removing any excess methylmethacrylate performed by both myself and Efraín PALACIOS. We then inserted the appropriate size polyethylene tibial insert. We made sure that it was locked into position. We took the knee into full extension, and then back in a flexion making sure we had removed any excess methylmethacrylate. The patellar component was then cemented down and secured with clamp. Excess methylmethacrylate removed. We kept the knee in full extension, patellar clamp in position until methylmethacrylate had hardened. Once it had hardened the patellar clamp was removed. The knee was taken through full range of motion. The patella tracked nicely. There was good soft tissue balancing. The tourniquet was now released. Additional hemostasis was achieved via electrocautery. A second gram of TXA was given. The wound again was irrigated with pulse lavage mechanical irrigation. The extensor mechanism was repaired with Ethibond suture. We checked the repair with range of motion and it was stable. The subcutaneous soft tissues were repaired with Vicryl in layers. The skin was approximated with pernio/Dermabond. Sterile dressings were applied followed by loose web roll and Justin bandage. The patient was transferred to a bed, and taken to recovery in stable and satisfactory condition. Efraín PALACIOS assisted with this complex procedure.
[2025-04-22] MEDS: ROPIVACAINE 1,100 MG, SODIUM CHLORIDE 0.9% 500 ML 330 ML, EMPTY PAIN BALL 1 EACH MISCELLANE PRN (09:40)
[2025-04-22] MEDS: HYDROmorphone 0.5 MG/0.5 ML SYRINGE IVP PRN ×2 (10:02→22:52)
--- NOTE | 2025-04-22 11:02 | XR ---
EXAMINATION TYPE: XR knee limited RT DATE OF EXAM: 04/22/2025 10:40 AM COMPARISON: None. CLINICAL INDICATION: Female, 55 years old with history of Evaluation for Postop abnormality and align ment, pain TECHNIQUE: 2 view(s) obtained. FINDINGS: Tibial and femoral components of place. No joint effusion is evident. No acute fracture. Soft tissue postsurgical changes are noted. IMPRESSION: 1. No acute fracture post knee replacement [facility], , 04/22/2025 11:00 AM
[2025-04-22] MEDS: LACTATED RINGERS 1,000 ML IV ONE (11:09)
[2025-04-22] MEDS: HYDROmorphone 1 MG/ML 1 ML SYRINGE IVP PRN (14:47)
[2025-04-22] MEDS ORDERED: NITROGLYCERIN SL TABS 0.4 MG TAB SUBLINGUAL PRN (16:33)
--- NOTE | 2025-04-22 16:54 | P.CONS ---
History of Present Illness - Reason for Consult Consult date: 04/22/25 - History of Present Illness History of present illness; Patient is a 55-year-old female with hyperlipidemia, hypertension who presents for elective right total knee arthroplasty. Patient has longstanding history of osteoarthritis of knee, which progressed after conservative management. Patient then followed up with orthopedic surgery outpatient and had planned surgery today. Patient is now postop with no known surgical complications. Patient is sitting up in bed resting with no complaints of pain. Patient reports absence of fever, chest pain, dyspnea, abdominal pain, and dysuria. Internal medicine was consulted for medical management. REVIEW OF SYSTEMS: All systems reviewed, pertinent positives and negatives noted in HPI. All other symptoms are negative. PHYSICAL EXAMINATION: VITAL SIGNS: Reviewed GENERAL: Resting comfortably in bed. Obese. EYES: PERRL, no scleral injection or icterus. HENT: Normocephalic, atraumatic, hearing grossly intact, moist mucous membranes. CARDIOVASCULAR: S1 and S2 present. No murmurs, rubs, or gallops. PULMONARY: Chest is clear to auscultation, no wheezing, rhonchi, or crackles. ABDOMEN: Soft, nontender, nondistended. No palpable organomegaly. NEUROLOGICAL: Alert and oriented. Gross neurological examination with no apparent focal deficits. EXTREMITIES: No pedal edema. Dressing bandages applied to right knee. SKIN: No apparent rashes. Today significant findings: No initial labs Right knee x-ray with no acute fracture, post knee replacement No EKG Assessment and plan Patient is a 55-year-old female with hyperlipidemia, hypertension who presents for elective right total knee arthroplasty. Chronic Medical Conditions #Essential hypertension - HOLD losartan until tomorrow, continue amlodipine #Hyperlidemia - Resume home Atorvastatin #Right total knee arthroplasty -Pain management and DVT prophylaxis per primary surgical team #Sleep apnea - CPAP ordered for overnight F: IV LR E: Replete as needed N: Regular Code status: Full code Patient is stable from medical stand point Follow up CBC and CMP in AM Dictation was produced using Kiw[employer] dictation software. Please excuse any grammatical, word or spelling errors. I have seen and evaluated the patient today. Discussed with the resident and agree with the residents finding and plan as documented in the resident's note. Changes highlighted in blue font. Past Medical History Past Medical History: GERD/Reflux, Hyperlipidemia, Hypertension, Myocardial Infarction ([place]), Osteoarthritis (OA), Pneumonia, Skin Disorder, Sleep Apnea/CPAP/BIPAP Additional Past Medical History / Comment(s): Migraines, Kidney stones. Back pain with DDD, numbness/tingling LT LEG, gastric ulcer, hiatal hernia, dry skin, 3 thyroid nodules, frequent nighttime urination, not using CPAP, has a boil on right posterior mid thigh-no drng, is getting better, not painful anymore Last Myocardial Infarction Date:: unknown History of Any Multi-Drug Resistant Organisms: None Reported Past Surgical History: Back Surgery, Section, Cholecystectomy, Heart Catheterization, Hysterectomy, Joint Replacement, Orthopedic Surgery Additional Past Surgical History / Comment(s): Bilateral carpal tunnel. left total knee arthroplasty, multiple pain procedures, bilateral knee arthroscopy, Left ESWL, left ureteroscopy with laser lithotripsy, oral surgery Past Anesthesia/Blood Transfusion Reactions: Postoperative Nausea & Vomiting (PONV) Additional Past Anesthesia/Blood Transfusion Reaction / Comm: PONV W/ C-S X1. Past Psychological History: Anxiety, Panic Disorder Additional Psychological History / Comment(s): panic attack when in crowds Smoking Status: Current every day smoker Past Alcohol Use History: None Reported Additional Past Alcohol Use History / Comment(s): STARTED SMOKING AT AGE 16 SMOKES < 1/2 PPD down to 1-2 cigs/day Past Drug Use History: Marijuana Additional Drug Use History / Comment(s): smoke or edibles daily - Past Family History Father Family Medical History: Cancer Additional Family Medical History / Comment(s): BLADDER CA Mother Additional Family Medical History / Comment(s): Mother w/ no significant hx; mother's father had throat CA. Medications and Allergies Home Medications Medication Instructions Recorded Confirmed Type amLODIPine [Norvasc] 5 mg PO HS 04/10/18 04/21/25 History Losartan [Cozaar] 50 mg PO HS 03/14/22 04/21/25 History Atorvastatin [Lipitor] 10 mg PO HS 01/04/25 04/21/25 History Nitroglycerin 0.4 mg SL Q5M PRN 01/04/25 04/21/25 History Imitrex(Unknown Dose) 1 tab PO DIRECTED PRN 04/21/25 04/21/25 History Magnesium 250 mg PO DAILY 04/21/25 04/21/25 History Multivitamins, Thera [Multivitamin 1 tab PO DAILY 04/21/25 04/21/25 History (formulary)] Allergies Allergy/AdvReac Type Severity Reaction Status Date / Time codeine Allergy Headache & Verified 04/21/25 08:46 Itching gabapentin Allergy Itching Verified 04/21/25 08:46 bandaid adhesive AdvReac skin Uncoded 04/21/25 08:46 irritation Physical Exam Vitals: Vital Signs Temp Pulse Pulse Resp BP BP Pulse Ox 04/22/25 14:27 97.8 F 71 16 142/75 96 04/22/25 14:00 80 16 127/83 98 04/22/25 13:30 73 14 122/77 97 04/22/25 13:00 84 14 127/80 94 L 04/22/25 12:30 76 13 116/68 96 04/22/25 12:15 81 15 113/67 97 04/22/25 12:00 82 15 110/69 04/22/25 11:45 81 11 L 127/80 99 04/22/25 11:30 78 10 L 131/83 99 04/22/25 11:15 80 10 L 126/76 98 04/22/25 11:00 70 10 L 138/76 97 04/22/25 10:45 76 12 137/80 98 04/22/25 10:30 81 14 149/87 97 04/22/25 10:15 84 16 158/93 98 04/22/25 10:00 83 14 150/84 100 04/22/25 09:44 81 14 168/80 100 04/22/25 09:34 97.5 F L 86 18 171/102 99 04/22/25 07:20 71 16 118/74 99 04/22/25 07:10 69 16 113/78 99 04/22/25 06:30 98.4 F 77 16 107/75 98 Intake and Output 04/22/25 04/22/25 04/22/25 06:59 14:59 22:59 Intake Total 300 1801 Output Total 50 Balance 300 1751 Intake: IV 300 1801 Output: Estimated Blood Loss 50 Other: Weight 94.8 kg 94.8 kg
[2025-04-22] MEDS: HYDROcodone/APAP 5-325MG 1 EACH TAB PO PRN (19:39)
[2025-04-22] MEDS: ATORVASTATIN 10 MG TAB PO SCH (20:45)
[2025-04-22] MEDS: amLODIPine 5 MG TAB PO SCH (20:45)
--- NOTE | 2025-04-23 06:18 | P.PN ---
Progress Note - Text Adequate analgesia. No anesthetic complication.
[2025-04-23] MEDS: HYDROcodone/APAP 7.5-325MG 1 EACH TAB PO PRN (07:49)
[2025-04-23] MEDS: MAGNESIUM OXIDE 400 MG TAB PO SCH (07:49)
[2025-04-23] MEDS: MULTIVITAMINS, THERA 1 EACH TAB PO SCH (07:49)
[2025-04-23 08:21] VITALS: BP 110/75; PULSE 77; RESP 18; TEMP 97.2
[2025-04-23 08:21] LABS: HCT 38.9 % (37.2-46.3); HGB 12.7 g/dL (12.0-15.0); MCH 28.6 pg (27.0-32.0); MCHC 32.6 g/dL (32.0-37.0); MCV 87.6 FL (80.0-97.0); Mean Platelet Volume 11.5 FL (9.5-12.2); NRBC Per 100 WBC 0 X 10*3/uL (0.00-0.01); Platelet Count 265 X 10*3/uL (140-440); RBC 4.44 X 10*6/uL (4.10-5.20); RDW 13.4 % (11.5-14.5); WBC 25.01 X 10*3/uL (4.50-10.00)
[2025-04-23 08:35] LABS: BUN/Creat Ratio 15.33 Ratio (12.00-20.00); Blood Urea Nitrogen 9.2 mg/dL (9.0-27.0); Calcium 8.9 mg/dL (8.7-10.3); Carbon Dioxide 24.2 mmol/L (21.6-31.8); Chloride 104 mmol/L (96-109); Glucose 115 mg/dL (70-110); Potassium 4.3 mmol/L (3.5-5.5); Sodium 140 mmol/L (135-145)
--- NOTE | 2025-04-23 10:25 | P.DS ---
Providers Date of admission: 04/22/2025 Expected date of discharge: 04/23/25 Attending physician: Callum Chowdary Consults: 04/22/25 16:17 Consult Physician Routine Consulting Provider: Clarence Martinez Consult Reason/Comments: medical management. need home meds ordered. Do you want consulting provider notified?: Already Contacted Primary care physician: Stated None Hospital Course: Date of admission: 04/22/2025 Date of discharge: 04/23/2025 Admission diagnosis: Right knee osteoarthritis Discharge diagnosis: Same Attending physician: Dr. Chowdary Surgical procedures: Right total knee arthroplasty Brief history: Patient is a 55-year-old female with a history of progressive primary right knee osteoarthritis. At this point patient has failed conservative treatment measures and has opted to proceed with a elective right total knee arthroplasty. Hospital course: Details of patient's surgery can be found in operative report. Patient tolerated the procedure well and was subsequently transported to orthopedic floor. Patient's orthopeidc and medical care was provided daily. Patient had daily laboratory tests performed for evaluation of overall blood counts. Patient had daily physical therapy to include strengthening range of motion as well as education with walker ambulation. Patient was treated with aspirin for their postoperative DVT prophylaxis during their inpatient stay. Patient was noted to have a relatively uneventful postoperative course. Patient reported satisfactory pain control with oral pain medications by postoperative day 1. Patient showed satisfactory progress with physical therapy. Patient moved steadily through the program and had no difficulty meeting the goals by postoperative day 1. Given patient's otherwise satisfactory course and having met physical therapy goals, plan is to discharge patient home with health services on postoperative day 1. Discharge condition/disposition: Patient will be discharged home health services in stable condition. Discharge medications: Instructions are given on resumption of patient's normal daily medications per primary care recommendation, in addition patient will be prescribed Effie; senna; aspirin 81 mg twice daily x 30 days. Discharge instructions: 1. Wound care and infection precautions, keep incision dry and covered while showering, no lotions, creams, moisturizers. No soaking, tubs, pools, hottubs. Do not scrub over the incision. 2. Weight-bear as tolerated with walker / cane until follow-up. 3. Ice and elevate when necessary. Do not exceed 20 minutes per hour with ice pack. 4. Utilize compression sleeve until seen at first follow up appointment. 5. Visiting nursing care. 6. Home physical therapy including home CPM. 7. Pain meds and anticoagulants per prescription. 8. Pain medication has potential to cause constipation. Increase oral fluid and fiber intake. Contact primary care provider if you have not had a bowel movement within 48 hours after discharge 9. No anti-inflammatory medication until discussed at first post operative visit, this including Motrin, Aleve, Mobic, Diclofenac. 10. Follow up in office at 2 weeks postop with Efraín Garcia PA-C / Wilmar Briones PA-C 11. Follow up with your primary care doctor 7-10 days after discharge. 12. Contact [facility] with any questions, . Assessment: Right knee osteoarthritis Procedures: Right total knee arthroplasty Patient Condition at Discharge: Good Plan - Discharge Summary Discharge Rx Participant: No New Discharge Prescriptions: New Aspirin [Adult Low Dose Aspirin EC] 81 mg PO BID #60 tab Sennosides/Docusate Sodium [Senna Plus 8.6-50 mg Softgel] 1 each PO DAILY #20 capsule HYDROcodone/APAP 7.5-325MG [Effie 7.5] 1 - 2 each PO Q6HR PRN #32 tab PRN Reason: Pain No Action amLODIPine [Norvasc] 5 mg PO HS Multivitamins, Thera [Multivitamin (formulary)] 1 tab PO DAILY Magnesium 250 mg PO DAILY Losartan [Cozaar] 50 mg PO HS Nitroglycerin 0.4 mg SL Q5M PRN PRN Reason: Chest Pain Atorvastatin [Lipitor] 10 mg PO HS Imitrex(Unknown Dose) 1 tab PO DIRECTED PRN PRN Reason: Migraine Headache Discharge Medication List amLODIPine [Norvasc] 5 mg PO HS 04/10/18 [History] Losartan [Cozaar] 50 mg PO HS 03/14/22 [History] Atorvastatin [Lipitor] 10 mg PO HS 01/04/25 [History] Nitroglycerin 0.4 mg SL Q5M PRN 01/04/25 [History] Imitrex(Unknown Dose) 1 tab PO DIRECTED PRN 04/21/25 [History] Magnesium 250 mg PO DAILY 04/21/25 [History] Multivitamins, Thera [Multivitamin (formulary)] 1 tab PO DAILY 04/21/25 [History] Aspirin [Adult Low Dose Aspirin EC] 81 mg PO BID #60 tab 04/23/25 [Rx] HYDROcodone/APAP 7.5-325MG [Effie 7.5] 1 - 2 each PO Q6HR PRN #32 tab 04/23/25 [Rx] Sennosides/Docusate Sodium [Senna Plus 8.6-50 mg Softgel] 1 each PO DAILY #20 capsule 04/23/25 [Rx] Follow up Appointment(s)/Referral(s): Russ Garcia PAC [PHYSICIAN PAIL BAILER] - 2 Weeks Patient Instructions/Handouts: *[facility] - On-Q Pain Pump Discharge Instructions, *[facility] - (Anesthesia) Discharge Instructions Outpatient Surgery, How to Use an Incentive Spirometer (DC), Precautions after Total Joint Replacement Surgery (DC), Knee Replacement (DC) Activity/Diet/Wound Care/Special Instructions: Orthopedic Discharge Instructions: 1. Wound care and infection precautions, keep incision dry and covered while showering, no lotions, creams, moisturizers. No soaking, pools, hot tubs. Do not scrub over incision. 2. Weight-bear as tolerated with walker / cane until follow-up. 3. Ice and elevate when necessary. Do not exceed 20 minutes per hour with ice pack. 4. Utilize compression sleeve until seen at first follow up appointment. 5. Pain meds and anticoagulants per prescription. 6. Pain medication has potential to cause constipation. Increase oral fluid and fiber intake. Contact primary care provider if you have not had a bowel movement within 48 hours after discharge. 7. No anti-inflammatory medication until discussed at first post operative visit, this including Motrin, Aleve, Mobic, Diclofenac. 8. Follow up in office at 2 weeks postop with Efraín Garcia PA-C / Wilmar Briones PA-C 9. Follow up with your primary care doctor 7-10 days after discharge. 10. Contact [facility] with any questions, . Keep incision clean, dry, intact. While showering, cover silver foam dressing with Saran wrap. Keep silver foam dressing on until , 04/29/2025. Once dressing is removed, it is okay to shower directly over incision. Discharge Disposition: HOME WITH HOME HEALTH SERVICES
--- NOTE | 2025-04-23 10:29 | P.PN ---
Subjective Progress Note Date: 04/23/25 Principal diagnosis: Right knee osteoarthritis Patient was seen at bedside this morning lying in the semi-, position with silver foam dressing present over the right knee. Patient says she just finished working with therapy and walked out of the hallway and up and down stairs. Patient says she has urinated since surgery yesterday without issues. Patient says she was post to go home yesterday but was admitted due to low O2 sats. She is following closely with her primary care provider. Patient denies any breathing issues this morning. Patient says she is looking forward to going home. Patient denies any other issues at this time. Objective - Vital Signs Vital signs: Vital Signs Temp 97.2 F L 04/23/25 07:24 Pulse 77 04/23/25 07:24 Resp 18 04/23/25 07:24 BP 110/75 04/23/25 07:24 Pulse Ox 96 04/23/25 07:24 FiO2 Intake & Output 04/22/25 04/23/25 04/23/25 18:59 06:59 18:59 Intake Total 1801 1620 180 Output Total 50 Balance 1751 1620 180 Weight 94.8 kg Intake: IV 1801 Oral 1620 180 Output: Estimated Blood Loss 50 Other: Voiding Method Toilet # Voids 2 6 1 - Exam Right knee: Incision is clean, dry, and intact. The silver foam dressing is in good condition. There is minimal soft tissue swelling and ecchymosis surrounding the medial and lateral aspects of the incision. Calf is soft, no tenderness with palpation. Plantar flexion, dorsiflexion, EHL, FHL are intact. Sensory exam to light touch throughout the extremity is intact, dorsal pedis pulses 2+. - Labs CBC & Chem 7: 04/23/25 05:22 04/23/25 05:22 Labs: Abnormal Lab Results - Last 24 Hours (Table) 04/23/25 04/23/25 Range/Units 05:22 05:22 WBC 25.01 H (4.50-10.00) X 10*3/uL Glucose 115 H (70-110) mg/dL Assessment and Plan Assessment: 1. Right knee osteoarthritis -Postop day 1 status post right total knee arthroplasty Plan: 1. Right knee osteoarthritis -right total knee arthroplasty performed yesterday, , 05/22/2025. Patient stable at bedside this morning with dressing present over right knee. Patient did do well with therapy. Pain medication as needed. Discharge home today with health services. 2. Appreciate medical management 3. Pain management -[place] 4. DVT prophylaxis -aspirin 81 mg bid 5. GI prophylaxis -senna 6. PT/OT -weightbearing as tolerated with walker 7. Encourage incentive spirometer use 8. Discharge planning -discharge home today with health services Time with Patient: Less than 30
--- NOTE | 2025-04-23 12:07 | P.PN ---
Subjective Progress Note Date: 04/23/25 History of present illness; Patient is a 55-year-old female with hyperlipidemia, hypertension who presents for elective right total knee arthroplasty. Patient has longstanding history of osteoarthritis of knee, which progressed after conservative management. Patient then followed up with orthopedic surgery outpatient and had planned surgery today. Patient is now postop with no known surgical complications. Patient is sitting up in bed resting with no complaints of pain. Patient reports absence of fever, chest pain, dyspnea, abdominal pain, and dysuria. Internal medicine was consulted for medical management. 04/23/2025patient seen and examined at bedside. No events overnight. Eating and drinking well. Bowel movement yesterday, no other concerns. Will be discharged today REVIEW OF SYSTEMS: All systems reviewed, pertinent positives and negatives noted in HPI. All other symptoms are negative. PHYSICAL EXAMINATION: VITAL SIGNS: Reviewed GENERAL: Resting comfortably in bed. Obese. CARDIOVASCULAR: S1 and S2 present. No murmurs, rubs, or gallops. PULMONARY: Chest is clear to auscultation, no wheezing, rhonchi, or crackles. ABDOMEN: Soft, nontender, nondistended. No palpable organomegaly. NEUROLOGICAL: Alert and oriented. Gross neurological examination with no apparent focal deficits. EXTREMITIES: No pedal edema. Dressing bandages applied to right knee. SKIN: No apparent rashes. Today significant findings: Labs pending Assessment and plan Patient is a 55-year-old female with hyperlipidemia, hypertension who presents for elective right total knee arthroplasty. #Leukocytosis, likely reactive postop Afebrile, postop, no antibiotics at this time Chronic Medical Conditions #Essential hypertension -resume losartan, and amlodipine #Hyperlidemia - Resume home Atorvastatin #Right total knee arthroplasty -Pain management and DVT prophylaxis per primary surgical team #Sleep apnea - CPAP ordered for overnight F: IV LR E: Replete as needed N: Regular Code status: Full code Patient is medically optimized and stable from medical stand point Dictation was produced using [employer] dictation software. Please excuse any grammatical, word or spelling errors. I saw and evaluated the patient during the grossman and critical portions of this encounter, and discussed the case in detail with the resident author of this note, I agree with the Assessment and Plan, and my changes, if any, are highlighted in blue. Objective - Vital Signs Vital signs: Vital Signs Temp 97.5 F L 04/23/25 00:59 Pulse 74 04/23/25 00:59 Resp 15 04/23/25 00:59 BP 127/77 04/23/25 00:59 Pulse Ox 95 04/23/25 00:59 FiO2 Intake & Output 04/22/25 04/23/25 04/23/25 18:59 06:59 18:59 Intake Total 1801 1620 Output Total 50 Balance 1751 1620 Weight 94.8 kg Intake: IV 1801 Oral 1620 Output: Estimated Blood Loss 50 Other: Voiding Method Toilet # Voids 2 6 - Labs CBC & Chem 7: 04/23/25 05:22 04/23/25 05:22
== END 2025-04-23 11:33 | disposition home health service (06) ==
LOC: OR 05:32 → 4SSUR 09:28 → OR 04-23 11:33
PROVIDERS: ATTEND Orthopaedic Surgery
DX: M17.11 Unilateral primary osteoarthritis, right knee (principal); E78.5 Hyperlipidemia, unspecified; G89.18 Other acute postprocedural pain; I10 Essential (primary) hypertension; I25.10 Atherosclerotic heart disease of native coronary artery without angina pectoris; I25.2 Old myocardial infarction; G47.30 Sleep apnea, unspecified; F17.210 Nicotine dependence, cigarettes, uncomplicated; Z79.82 Long term (current) use of aspirin; Z79.899 Other long term (current) drug therapy
CPT/HCPCS: 97161; 64448; 64473; 80048; 85027; 73560; 27447; C1776; C1713 ×2; C1751; J2250; J1100; J0690 ×2; J2405; J3010; J1171 ×2; J2795

== ENCOUNTER → 2025-05-25 | Outpatient (CLI) | payer MEDICARE, OTHER ==
--- NOTE | 2025-05-25 13:23 | MM ---
Reason for Exam: Screening (asymptomatic). Last mammogram was performed 7 year(s) and 8 month(s) ago. Patient History: Menarche at age 10. First Full-Term at age 23. Left ovary removed at age 43. Right ovary removed at age 43. Hysterectomy at age 43. Postmenopausal. Patient has history of breast feeding. Maternal cousin had breast cancer under age 50. Risk Values: Kathrine 5 year model risk: 1.4%. NCI Lifetime model risk: 8.7%. Prior Study Comparison: 01/27/2010 Right Diagnostic Mammogram, [facility]. 07/28/2010 Bilateral Diagnostic Mammogram, [facility]. 08/13/2012 Bilateral Screening Mammogram, [facility]. 09/17/2017 Bilateral Screening Mammogram, [facility]. Tissue Density: There are scattered areas of fibroglandular density. Findings: Analyzed By CAD. Unchanged global asymmetry left upper outer quadrant. Chronic nodularity left axillary tail. There is no suspicious group of microcalcifications or new suspicious mass in either breast. Overall Assessment: Benign, BI-RAD 2 Management: Screening Mammogram of both breasts in 1 year. Patient should continue monthly self-breast exams. A clinical breast exam by your physician is recommended on an annual basis. This exam should not preclude additional follow-up of suspicious palpable abnormalities. Note on Kathrine scores and lifetime risk: 1. A Kathrine score greater than 3% is considered moderate risk. If this is the case, consider specialist referral to assess eligibility for a risk reducing agent. 2. If overall lifetime risk for the development of breast cancer is 20% or higher, the patient may qualify for future screening with alternating mammogram and breast MRI. [facility], , 05/25/2025 1:17 PM. Electronically signed and approved by: Daysi Palmer M.D. Radiologist
== END | disposition home or self-care (01) ==
LOC: RADMAMWWP 09:02
PROVIDERS: ATTEND Pediatrics
DX: Z12.31 Encounter for screening mammogram for malignant neoplasm of breast (principal); R92.323 Mammographic fibroglandular density, bilateral breasts; Z78.0 Asymptomatic menopausal state; R06.00 Dyspnea, unspecified; Z80.3 Family history of malignant neoplasm of breast
CPT/HCPCS: 77063; 77067; 94060; 94726; 94729